=== PATIENT | female | born 1950 | race Caucasian/White ===

== ENCOUNTER 2016-08-23 10:02 | Day surgery (SDC) | payer MEDICARE ==
[2016-07-26 10:24] VITALS: BMI 25.0
--- NOTE | 2016-08-22 13:30 | HP ---
DATE OF ADMISSION: Surgery is 08/23/2016. Leisa Cordoba is a 66-year-old patient who was seen with progressive left knee pain. After having treatment options discussed, patient elected to proceed with left knee arthroscopy. Consent was obtained. Past medical history is noncontributory. PAST SURGICAL HISTORY: Tubal ligation. DAILY MEDICATIONS: 1. Advil. 2. [id number] vitamins. ALLERGIES: CODEINE. SOCIAL HISTORY: Patient denies tobacco use. PHYSICAL EVALUATION OF THE LEFT KNEE: Range of motion is 0 to 130 degrees. There is a mild effusion present. Tenderness along the medial and lateral joint lines. Positive medial Daphney's. Ligaments stable. Hip rotation is without pain. Distal neurovascular exam is intact. Radiographs of the left knee revealed mild to moderate medial compartment osteoarthritis. An MRI of the left knee revealed medial meniscal tear, osteoarthritis and joint effusion. IMPRESSION: Internal derangement of the left knee with medial meniscal tear. PLAN: Left knee arthroscopy with partial meniscectomy and debridement.
[~2016-08-23 10:02] MED LIST: DEXAMETHASONE SOD PHOSPHATE 10 MG/ML 1 ML VIAL IV ONE; LACTATED RINGERS 1,000 ML IV SCH; LIDOCAINE 1% 20 ML VIAL (10MG/ML) FOR IV START INTRADERMA PRN; ONDANSETRON 4 MG/2 ML VIAL IVP ONE; SCOPOLAMINE 1.5MG/72HR PATCH TRANSDERM ONE; ceFAZolin 2 GM in SODIUM CHLORIDE 0.9% 100 ML IVPB ONE; fentaNYL (PF) 50 MCG/ML 2 ML AMP IV PRN
[2016-08-23] MEDS ORDERED: LIDOCAINE 1% 20 ML VIAL (10MG/ML) FOR IV START INTRADERMA ONE (10:25)
[2016-08-23] MEDS ORDERED: SUCCINYLCHOLINE CHLORIDE 100 MG/5 ML SYR IV ONE (11:33)
[2016-08-23] MEDS ORDERED: LIDOCAINE 1% INJ 10MG/ML (20 ML MDV) ONE (11:33)
[2016-08-23] MEDS ORDERED: PROPOFOL 10 MG/ML 20 ML VIAL IV ONE (11:33)
[2016-08-23] MEDS ORDERED: BUPIVACAIN-EPI 0.25%-1:200,000 30 ML VIAL INTRAARTIC ONE (11:33)
[2016-08-23] MEDS ORDERED: ONDANSETRON 4 MG/2 ML VIAL ONE (11:33)
[2016-08-23] MEDS ORDERED: MIDAZOLAM 2 MG/2 ML VIAL ONE (11:33)
[2016-08-23] MEDS ORDERED: fentaNYL (PF) 50 MCG/ML 2 ML AMP ONE (11:33)
--- NOTE | 2016-08-23 12:37 | P.OP ---
Date of Procedure: 08/23/16 Preoperative Diagnosis: Internal derangement left knee Postoperative Diagnosis: 1. Tear medial and lateral meniscus left knee 2. Grade 2/3 chondromalacia medial femoral condyle left knee 3. Grade 2/3 chondromalacia patella left knee 4. Reactive synovitis medial and suprapatellar compartments left knee Procedure(s) Performed: 1. Arthroscopic partial medial and lateral meniscectomy left knee 2. Arthroscopic chondroplasty medial femoral condyle left knee 3. Arthroscopic chondroplasty patella left knee 4. Arthroscopic partial synovectomy medial and suprapatellar compartments left knee Anesthesia: GETA Surgeon: Toro Mccloud Estimated Blood Loss (ml): 10 Pathology: none sent Condition: stable Disposition: PACU Indications for Procedure: 66-year-old patient seen with progressive left knee pain. After having treatment options discussed, she elected to proceed with left knee arthroscopy. Operative Findings: See description of procedure Description of Procedure: Patient was taken to the operative suite. Patient underwent a general anesthetic by the department of anesthesia. Patient was given preoperative antibiotics. The left lower extremity was placed in a well-padded arthroscopic leg carr. The left leg was prepped and draped in the normal sterile orthopedic fashion. A lateral parapatellar and suprapatellar incision was made. Trochars were inserted. Arthroscopy was initiated. Suprapatellar pouch revealed diffuse thick reactive synovitis. The patellofemoral joint appeared to articulate congruently. There was grade 2-3 chondromalacia of the patella with some osteochondral tears present. The scope was guided into the medial gutter. No loose bodies or plica were identified. The scope was then guided into the medial compartment. A medial parapatellar incision was made. Trocar inserted followed by probe. There was a complex tear involving the posterior horn medial meniscus which extended into the midbody. There were grade 2-3 chondromalacia changes of the medial femoral condyle with some osteochondral tears. There were grade 2-3 chondromalacia changes of the tibial plateau. There was some reactive synovitis anteriorly. A partial medial meniscectomy was performed on a stable tissue. I performed a chondroplasty of the medial femoral condyle and partial synovectomy. The residual meniscus was probed and found to be stable. The residual osteochondral surface of the femur was stable as well. Scope and probe were then guided into the intercondylar notch. Cruciates were identified, probed and found to be stable. The scope and probe were then guided into lateral compartment. There was a radial tear involving the posterior horn lateral meniscus. The lateral femoral condyle and tibial plateau were unremarkable. There were no loose bodies and no reactive synovitis. A partial lateral meniscectomy was performed on a stable tissue. The residual meniscus was probed and found to be stable. The scope was in guided back into the suprapatellar compartment. I introduced a motorized shaver into the super compartment. I performed a chondroplasty of the patella getting down to stable osteochondral tissue. I debrided piecemeal fragments of meniscus I encountered. I performed a partial synovectomy. The shaver was removed. The patella was probed and the residual osteochondral surface was stable with grade 2-3 chondromalacia changes. The probe was removed. I took one more look around the entire knee. No residual debris. Instruments were now removed from the joint. The joint was infiltrated with .25% Marcaine. Steri-Strips were applied to the portal sites. Sterile dressings were applied. The patient was placed into a MOLLY hose. No tourniquet was utilized. The patient was awakened, transferred to a bed and taken to recovery stable satisfactory condition.
[2016-08-23 12:42] VITALS: TEMP 98.3
[2016-08-23 12:55] VITALS: RESP 18
[2016-08-23] MEDS ORDERED: KETOROLAC 30 MG/ML 1 ML VIAL IVP ONE (13:00)
[2016-08-23] MEDS ORDERED: LACTATED RINGERS 1,000 ML IV ONE (13:36)
[2016-08-23] MEDS ORDERED: IBUPROFEN 800 MG TAB PO STA (14:24)
[2016-08-23 14:25] VITALS: PULSE 68
[2016-08-23] MEDS ORDERED: IBUPROFEN 200 MG TAB PO ONE (14:28)
[2016-08-23 14:49] VITALS: BP 143/73
== END 2016-08-23 15:11 | disposition home or self-care (01) ==
LOC: OR 10:02
PROVIDERS: ATTEND Orthopaedic Surgery
DX: S83.242A Other tear of medial meniscus, current injury, left knee, initial encounter (principal); S83.282A Other tear of lateral meniscus, current injury, left knee, initial encounter; X58.XXXA Exposure to other specified factors, initial encounter; M22.42 Chondromalacia patellae, left knee; M65.862 Other synovitis and tenosynovitis, left lower leg; Z79.1 Long term (current) use of non-steroidal anti-inflammatories (NSAID); Z88.5 Allergy status to narcotic agent
CPT/HCPCS: 29880; J2250; J1100; J0690; J2405; J2001; J3010; J1885; J0330; J2704

== ENCOUNTER → 2016-08-29 | Outpatient (CLI) | payer MEDICARE ==
--- NOTE | 2016-08-31 07:57 | MM ---
Reason for exam: screening (asymptomatic). Last mammogram was performed 2 years and 1 month ago. History: Patient is postmenopausal. Family history of breast cancer in sister at age 59. Taking estrogen for 5 years 1 month. Physical Findings: A clinical breast exam by your physician is recommended on an annual basis and results should be correlated with mammographic findings. MG 3D Screening Mammo W/Cad Bilateral CC and MLO view(s) were taken. Prior study comparison: July 31, 2014, bilateral MG screening mammo w CAD. June 07, 2012, bilateral digital screening mammo w/CAD. February 08, 2011, bilateral digital screening mammo w/CAD. The breast tissue is heterogeneously dense. This may lower the sensitivity of mammography. No significant changes when compared with prior studies. ASSESSMENT: Negative, BI-RAD 1 RECOMMENDATION: Routine screening mammogram of both breasts in 1 year.
== END | disposition home or self-care (01) ==
LOC: RADMAMWWP 11:16
PROVIDERS: ATTEND Family Medicine
DX: Z12.31 Encounter for screening mammogram for malignant neoplasm of breast (principal)
CPT/HCPCS: 77063; G0202

== ENCOUNTER 2016-12-13 07:14 | Day surgery (SDC) | payer MEDICARE ==
[2016-12-08 09:41] VITALS: BMI 24.3
[~2016-12-13 07:14] MED LIST changes: -DEXAMETHASONE SOD PHOSPHATE 10 MG/ML 1 ML VIAL IV ONE; -ONDANSETRON 4 MG/2 ML VIAL IVP ONE; -SCOPOLAMINE 1.5MG/72HR PATCH TRANSDERM ONE; -ceFAZolin 2 GM in SODIUM CHLORIDE 0.9% 100 ML IVPB ONE; -fentaNYL (PF) 50 MCG/ML 2 ML AMP IV PRN
[2016-12-13 07:43] VITALS: TEMP 97
[2016-12-13] MEDS ORDERED: PROPOFOL 10 MG/ML 20 ML VIAL IV ONE (07:53)
[2016-12-13] MEDS ORDERED: LIDOCAINE 1% INJ 10MG/ML (20 ML MDV) ONE (07:53)
--- NOTE | 2016-12-13 07:57 | P.GSHP ---
History of Present Illness H&P Date: 12/13/16 Chief Complaint: Colon cancer screening Patient here today for colonoscopy. Last colonoscopy was over 10 years ago and was normal. No family history of colon cancer. No symptoms at this time. Past Medical History Past Medical History: No Reported History Additional Past Medical History / Comment(s): torn meniscus lt knee,states "hx approx 5 yrs ago b/p dropped low a couple of times suddenly and was seen by associate trainer.",palpitations,varicose vein History of Any Multi-Drug Resistant Organisms: None Reported Past Surgical History: Orthopedic Surgery, Tubal Ligation Additional Past Surgical History / Comment(s): LT KNEE SCOPE. COLONOSOCPY Past Anesthesia/Blood Transfusion Reactions: Postoperative Nausea & Vomiting ( PONV) Additional Past Anesthesia/Blood Transfusion Reaction / Comment(s): mother-ponv, no hx blood transfusion Past Psychological History: No Psychological Hx Reported Smoking Status: Never smoker Past Alcohol Use History: None Reported Past Drug Use History: None Reported - Past Family History Mother Family Medical History: No Reported History Father Family Medical History: Cancer, Chest Pain / Angina Additional Family Medical History / Comment(s): prostate Sister(s) Family Medical History: Cancer Additional Family Medical History / Comment(s): breast Medications and Allergies Home Medications Medication Instructions Recorded Confirmed Type Acetaminophen [Tylenol Arthritis] 650 mg PO Q6H PRN 07/26/16 12/13/16 History Ascorbic Acid [Vitamin C] 500 mg PO DAILY 07/26/16 12/13/16 History B Tropilis Supplement 1 tab PO DAILY 07/26/16 12/13/16 History Calcium Carbonate/Vitamin D3 1 each PO DAILY 07/26/16 12/13/16 History [Calcium 600-Vit D3 400 Caplet] Ibuprofen [Advil] 200 - 400 mg PO Q6H PRN 07/26/16 12/13/16 History Magnesium 600 mg PO BID 07/26/16 12/13/16 History Potassium 99 mg PO DAILY 07/26/16 12/13/16 History [place] Jelly 250 mg PO DAILY 07/26/16 12/13/16 History Ubidecarenone [Co Q-10] 100 mg PO DAILY 07/26/16 12/13/16 History Allergies Allergy/AdvReac Type Severity Reaction Status Date / Time codeine AdvReac Hallucinati Verified 12/08/16 09:37 ons Surgical - Exam Vital Signs Temp Pulse Resp BP Pulse Ox 97.0 F L 68 14 101/65 97 12/13/16 07:42 12/13/16 07:42 12/13/16 07:42 12/13/16 07:42 12/13/16 07:42 Physical exam: General: Well-developed, well-nourished HEENT: Normocephalic, sclerae nonicteric Abdomen: Nontender, nondistended Extremities: No edema Neuro: Alert and oriented Assessment and Plan (1) Colon cancer screening Narrative/Plan: Will proceed with colonoscopy at this time. Status: Acute
--- NOTE | 2016-12-13 08:13 | P.PCN ---
Date of Procedure: 12/13/16 Procedure(s) Performed: PREOPERATIVE DIAGNOSIS: Colon cancer screening POSTOPERATIVE DIAGNOSIS: Normal exam PROCEDURE: Colonoscopy ANESTHESIA: MAC SURGEON: Alexandru Yee M.D. SPECIMENS: None ENDOSCOPIC PROCEDURE: The patient was placed on the endoscopy table in the left decubitus position. The Olympus colonoscope was inserted into the anus and passed under direct visualization to the base of the cecum. The appendiceal orifice was visualized. From that point the scope was slowly withdrawn inspecting all surfaces carefully. There were no neoplastic inflammatory or polypoid lesions throughout the cecum, ascending, transverse, descending, sigmoid and rectum. There was no diverticulosis noted. Digital rectal examination was normal. The patient was taken to the recovery room in stable condition per anesthesia guidelines. RECOMMENDATIONS: Increase fiber. Follow-up colonoscopy 10 years.
[2016-12-13 08:26] VITALS: RESP 16
[2016-12-13 08:48] VITALS: BP 111/68; PULSE 66
== END 2016-12-13 09:10 | disposition home or self-care (01) ==
LOC: ORWHC2ENDO 07:14
PROVIDERS: ATTEND Surgery
DX: Z12.11 Encounter for screening for malignant neoplasm of colon (principal); Z88.5 Allergy status to narcotic agent
CPT/HCPCS: J2001; J2704; G0121; 45378

== ENCOUNTER → 2017-09-17 | Outpatient (CLI) | payer MEDICARE ==
--- NOTE | 2017-09-19 07:56 | MM ---
Reason for exam: screening (asymptomatic). Last mammogram was performed 1 year and 1 month ago. History: Patient is postmenopausal. Family history of breast cancer in sister at age 59. Taking estrogen for 5 years 1 month. Physical Findings: A clinical breast exam by your physician is recommended on an annual basis and results should be correlated with mammographic findings. MG 3D Screening Mammo W/Cad Bilateral CC and MLO view(s) were taken. Prior study comparison: August 29, 2016, bilateral MG 3d screening mammo w/cad. July 31, 2014, bilateral MG screening mammo w CAD. The breast tissue is heterogeneously dense. This may lower the sensitivity of mammography. No suspicious abnormality. No significant changes when compared with prior studies. ASSESSMENT: Negative, BI-RAD 1 RECOMMENDATION: Routine screening mammogram of both breasts in 1 year.
== END | disposition home or self-care (01) ==
LOC: RADMAMWWP 14:45
PROVIDERS: ATTEND Family Medicine
DX: Z12.31 Encounter for screening mammogram for malignant neoplasm of breast (principal)
CPT/HCPCS: 77063; 77067

== ENCOUNTER → 2017-09-18 | Outpatient (CLI) | payer MEDICARE ==
--- NOTE | 2017-09-18 12:23 | BD ---
EXAMINATION TYPE: MG DEXA axial skeleton. DATE OF EXAM: 09/18/2017 CLINICAL HISTORY: Height: 67 inches Weight: 163 FRAX RISK QUESTIONS: Alcohol (3 or more units per day): no Family History (Parent hip fracture): yes, father Glucocorticoids (More than 3mos): no (Ex: prednisone, prednisolone, methylprednisolone, dexamethasone, and hydrocortisone). History of Fracture in Adulthood: foot Secondary Osteoporosis: 1. Type 1 Diabetes: no 2. Hyperthyroidism: no 3. Menopause before 45: no 4. Malnutrition: no 5. Chronic liver disease: no Rheumatoid Arthritis: no Current Tobacco Use: no RISK FACTORS HISTORY OF: Family History of Osteoporosis: possibly mother Active: yes Diet low in dairy products/other sources of calcium: at least one serving a day Postmenopausal woman: yes Take estrogen and/or progesterone medications: not now How long: about 5 years Lost more than 2 inches in height since high school: no Frequent falls: no Poor Health: no Hyperparathyroidism: no Adrenal Insufficiency: no MEDICATIONS: Prednisone or other steroids: no Thyroid Medications: no Osteoporosis Medications: no Additional Medications: calcium with vitaminD EXAM MEASUREMENTS: Bone mineral densitometry was performed using the [employer] Computer System. Bone mineral density as measured about the Lumbar spine is: ----- L1-L4(G/cm2): 1.104 T Score Values are as follows: ----- L2: -1.2 ----- L3: -0.9 ----- L4: 0.7 ----- L1-L4: -0.6 Bone mineral density has: Decreased -4.5% since study of: 05/03/2007 Bone mineral density about the R hip (g/cm2): 0.732 Bone mineral density about the L hip (g/cm2): 0.808 T Score values are as follows: -----R Neck: -2.2 -----L Neck: -1.7 -----R Total: -1.7 -----L Total: -1.4 Bone mineral density has: Decreased -5.1% since study of: 05/03/2007 IMPRESSION: Osteopenia about the bilateral femora. NOTE: T-SCORE=SD OF THE YOUNG ADULT MEAN.
== END | disposition home or self-care (01) ==
LOC: RADBDWWP 10:27
PROVIDERS: ATTEND Family Medicine
DX: M85.851 Other specified disorders of bone density and structure, right thigh (principal); M85.852 Other specified disorders of bone density and structure, left thigh
CPT/HCPCS: 77080

== ENCOUNTER 2019-07-10 10:51 | Emergency (ER) | payer MEDICARE ==
[2019-07-10 10:59] VITALS: BP 121/65; PULSE 80; RESP 18; TEMP 98
--- NOTE | 2019-07-10 11:25 | XR ---
EXAMINATION TYPE: XR chest 2V DATE OF EXAM: 07/10/2019 COMPARISON: Chest x-ray August 04, 2010. HISTORY: Cough and fever. TECHNIQUE: Frontal and lateral views of the chest are obtained. FINDINGS: There is no focal air space opacity, pleural effusion, or pneumothorax seen. The cardiac silhouette size is stable and upper limits of normal. Osseous structures are demineralized. Underlyin g dextroconvex scoliosis centered mid to lower thoracic spine is redemonstrated. IMPRESSION: No suspicious new acute pulmonary process.
--- NOTE | 2019-07-10 11:42 | ED ---
URI HPI - General Chief Complaint: Upper Respiratory Infection Stated Complaint: Fever/congestion/cough Time Seen by Provider: 07/10/19 11:01 Source: patient Mode of arrival: ambulatory Limitations: no limitations - History of Present Illness Initial Comments: Patient is a 69-year-old female presenting to the emergency Department with complaints of a cough and chest congestion for the past week. Patient also admits to intermittent fevers. Patient denies history of asthma or COPD. Patient states today she has been feeling an increase in fatigue as well as an increase in chest congestion. Patient denies chest pains, shortness of breath, nausea, vomiting, abdominal pain. Patient has no other complaints this time. Upon arrival to the ER, vital signs are stable, afebrile. - Related Data Home Medications Medication Instructions Recorded Confirmed Acetaminophen [Tylenol Arthritis] 650 mg PO Q6H PRN 07/26/16 12/13/16 Ascorbic Acid [Vitamin C] 500 mg PO DAILY 07/26/16 12/13/16 B Tropilis Supplement 1 tab PO DAILY 07/26/16 12/13/16 Calcium Carbonate/Vitamin D3 1 each PO DAILY 07/26/16 12/13/16 [Calcium 600-Vit D3 400 Caplet] Ibuprofen [Advil] 200 - 400 mg PO Q6H PRN 07/26/16 12/13/16 Magnesium 600 mg PO BID 07/26/16 12/13/16 Potassium 99 mg PO DAILY 07/26/16 12/13/16 [place] Jelly 250 mg PO DAILY 07/26/16 12/13/16 Ubidecarenone [Co Q-10] 100 mg PO DAILY 07/26/16 12/13/16 Previous Rx's Medication Instructions Recorded Azithromycin [Zithromax Z-pack] 0 mg PO DIRECTED #1 pack 07/10/19 predniSONE 20 mg PO BID 3 Days #6 tab 07/10/19 Allergies Allergy/AdvReac Type Severity Reaction Status Date / Time codeine AdvReac Hallucinati Verified 07/10/19 10:55 ons Review of Systems ROS Statement: Those systems with pertinent positive or pertinent negative responses have been documented in the HPI. ROS Other: All systems not noted in ROS Statement are negative. 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 COLONOSOCPY Past Anesthesia/Blood Transfusion Reactions: Postoperative Nausea & Vomiting (PONV) Additional Past Anesthesia/Blood Transfusion Reaction / Comment(s): mother- ponv,no hx blood transfusion Past Psychological History: No Psychological Hx Reported Smoking Status: Never smoker Past Alcohol Use History: None Reported, Occasional Past Drug Use History: None Reported - Past Family History Mother Family Medical History: No Reported History Father Family Medical History: Cancer, Chest Pain / Angina Additional Family Medical History / Comment(s): prostate Sister(s) Family Medical History: Cancer Additional Family Medical History / Comment(s): breast General Exam - General Exam Comments Initial Comments: GENERAL: Well-appearing, well-nourished and in no acute distress. HEAD: Atraumatic, normocephalic. EYES: Pupils equal round and reactive to light, extraocular movements intact, sclera anicteric, conjunctiva are normal. ENT: TMs normal, nares patent, oropharynx clear without exudates. Moist mucous membranes. NECK: Normal range of motion, supple without lymphadenopathy or JVD. LUNGS: Breath sounds clear to auscultation bilaterally and equal. No wheezes rales or rhonchi. HEART: Regular rate and rhythm without murmurs, rubs or gallops. ABDOMEN: Soft, nontender, normoactive bowel sounds. No guarding, no rebound. No masses appreciated. EXTREMITIES: Normal range of motion, no pitting or edema. No clubbing or cyanosis. NEUROLOGICAL: Cranial nerves II through XII grossly intact. Normal speech, normal gait. PSYCH: Normal mood, normal affect. SKIN: Warm, Dry, normal turgor, no rashes or lesions noted. Limitations: no limitations Course Vital Signs 07/10/19 10:56 Temperature 98.0 F Pulse Rate 80 Respiratory 18 Rate Blood Pressure 121/65 O2 Sat by Pulse 96 Oximetry Medical Decision Making - Medical Decision Making Patient is a 69-year-old female presenting with cough and chest congestion 1 week. Vital signs are stable upon arrival. Exam is unremarkable today. Chest x-ray shows no acute processes. Influenza is negative. Discussed with patient is most likely an upper respiratory infection but given her intermittent fevers we will treat with azithromycin and short course of steroids. Patient is agreeable with this plan care. Patient will follow up with PCP if symptoms persist. Return parameters were discussed with the patient she verbalized understanding. Case discussed with Dr. Garcia. - Lab Data Lab Results 07/10/19 Range/Units 11:16 Influenza Type A RNA Not Detected (Not Detectd) Influenza Type B (PCR) Not Detected (Not Detectd) Disposition Clinical Impression: Upper respiratory tract infection Disposition: HOME SELF-CARE Condition: Stable Instructions (If sedation given, give patient instructions): Upper Respiratory Infection (ED) Additional Instructions: Please return to the Emergency Department if symptoms worsen or any other concerns. Take medications as prescribed. Follow-up with PCP if symptoms persist. Prescriptions: predniSONE 20 mg PO BID 3 Days #6 tab Azithromycin [Zithromax Z-pack] 0 mg PO DIRECTED #1 pack Is patient prescribed a controlled substance at d/c from ED?: No Referrals: Carlos Torrez DO [Primary Care Provider] - 1-2 days
== END 2019-07-10 12:13 | disposition home or self-care (01) ==
LOC: EC 10:51
DX: J06.9 Acute upper respiratory infection, unspecified (principal); Z88.5 Allergy status to narcotic agent
CPT/HCPCS: 71046; 87502; 99283

== ENCOUNTER → 2020-08-03 | Outpatient (CLI) | payer MEDICARE ==
--- NOTE | 2020-08-04 11:55 | MM ---
Reason for exam: screening (asymptomatic). Last mammogram was performed 2 years and 11 months ago. History: Patient is postmenopausal. Family history of breast cancer in sister at age 59. Taking estrogen for 5 years 1 month. Physical Findings: A clinical breast exam by your physician is recommended on an annual basis and results should be correlated with mammographic findings. MG 3D Screening Mammo W/Cad Bilateral CC and MLO view(s) were taken. Prior study comparison: September 17, 2017, bilateral MG 3d screening mammo w/cad. August 29, 2016, bilateral MG 3d screening mammo w/cad. The breast tissue is extremely dense which could obscure a lesion on mammography. There is no discrete abnormality. No significant changes when compared with prior studies. ASSESSMENT: Negative, BI-RAD 1 RECOMMENDATION: Routine screening mammogram of both breasts in 1 year.
== END | disposition home or self-care (01) ==
LOC: RADMAMWWP 14:25
PROVIDERS: ATTEND Family Medicine
DX: Z12.31 Encounter for screening mammogram for malignant neoplasm of breast (principal)
CPT/HCPCS: 77063; 77067

== ENCOUNTER → 2020-08-03 | Outpatient (CLI) | payer MEDICARE ==
--- NOTE | 2020-08-03 18:16 | P.HPOB ---
History of Present Illness H&P Date: 08/03/20 Chief Complaint: The patient is here for her routine gynecologic exam and ma mmogram. This is a 70-year-old with an LMP of 2002. The patient is here to establish with this office. She previously saw Dr. Nuno for her gynecologic care. Her last pelvic exam was about 5 or 6 years ago. She is without gynecologic complaints and denies any postmenopausal bleeding. Review of Systems Weight has been stable.. She denies respiratory, cardiac and G.I. problems. She denies maltreatment or problems with falling. : she denies any significant problems with urinary leakage. Past Medical History Past Medical History: No Reported History Additional Past Medical History / Comment(s): torn meniscus lt knee,states, palpitations,varicose vein. Osteopenia. 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 History of Any Multi-Drug Resistant Organisms: None Reported Past Surgical History: Tubal Ligation Additional Past Surgical History / Comment(s): LT KNEE SCOPE. COLONOSOCPY 2017(next after 10yr) Past Anesthesia/Blood Transfusion Reactions: Postoperative Nausea & Vomiting (PO NV) Additional Past Anesthesia/Blood Transfusion Reaction / Comment(s): mother- ponv,no hx blood transfusion Past Psychological History: No Psychological Hx Reported Smoking Status: Never smoker Past Alcohol Use History: Occasional (2 per month) Past Drug Use History: None Reported Additional History: She has been since 2007. She currently lives with her ex- and is sexually active with him. 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 She also works part-time at [employer]. - Past Family History Mother Family Medical History: CVA/TIA Father Family Medical History: Cancer, Chest Pain / Angina, CVA/TIA Additional Family Medical History / Comment(s): prostate CA. Sister(s) Family Medical History: Cancer Additional Family Medical History / Comment(s): breast CA. Medications and Allergies Home Medications Medication Instructions Recorded Confirmed Type Acetaminophen [Tylenol Arthritis] 650 mg PO Q6H PRN 07/26/16 08/03/20 History Ascorbic Acid [Vitamin C] 500 mg PO DAILY 07/26/16 08/03/20 History Calcium Carbonate/Vitamin D3 1 each PO DAILY 07/26/16 08/03/20 History [Calcium 600-Vit D3 400 Caplet] Magnesium 600 mg PO BID 07/26/16 08/03/20 History Potassium 99 mg PO DAILY 07/26/16 08/03/20 History Allergies Allergy/AdvReac Type Severity Reaction Status Date / Time codeine AdvReac Hallucinati Verified 08/03/20 15:06 ons Exam Vital Signs Temp Pulse Resp BP Pulse Ox 08/03/20 15:06 98.0 F 97 18 143/81 98 Intake and Output 08/03/20 08/03/20 08/03/20 06:59 14:59 22:59 Other: Weight 73.482 kg Height 5 feet 6-1/2 inches, weight 162 pounds, BMI 25.8. This is a well-developed well-nourished white female who is alert and oriented times 3 in no acute distress. HEENT: Within normal limits. NECK: Supple without mass or thyromegaly. CHEST AND LUNGS: Clear to auscultation. HEART: Regular rate and rhythm. BREASTS: Are without mass or discharge. AXILLARY EXAM: Negative for adenopathy. BACK: Negative for CVA tenderness. ABDOMEN: Soft, nontender, without palpable masses. PELVIC EXAM: Normal external genitalia with mild atrophy. Cervix and vagina appear normal with mild atrophy. There is no unusual discharge. There is a grade 2 uterine prolapse at rest. With Valsalva it approaches the introitus. There is no significant cystocele or rectocele. The uterus is midposition, nongravid size and nontender. There are no palpable adnexal masses or tenderness. RECTAL EXAM: Rectovaginal exam is negative for mass or tenderness and is negative for occult blood. EXTREMITIES: Nontender. IMPRESSION: 1. 70-year-old menopausal female with grade 2-3 uterine prolapse which is asymptomatic. The patient states she was told by Dr. Urias that she had some degree of uterine prolapse in the past. 2. History of osteopenia. 3. Mildly elevated blood pressure. PLAN: 1. Pap smear cotest was performed. I will review Dr. Nuno's chart and we'll determine if she is a candidate to have her Pap smears discontinued. 2. Self breast awareness was discussed with the patient. 3. Screening mammogram was done today. 4. Osteoporosis prevention was discussed. I have stressed the importance of adequate calcium, vitamin D and regular exercise. Recommended amounts of calcium and vitamin D were also discussed. Repeating bone density testing was r ecommended and the order slip was given to the patient for this. She may want to do this next year. 5. Her uterine prolapse was discussed. She would like to manage this conservatively as she has done in the past. To avoid heavy repetitive lifting and bearing down when possible. Negative Valsalva exercises were discussed if she is feeling vaginal pressure. She was instructed to return for follow-up if she is having symptoms related to this. The [employer]CO[employer] FAQ handout on pelvic prolapse was given to the patient. 6. She was advised to return in one year for her annual well woman exam.
--- NOTE | 2020-08-11 11:14 | P.PN ---
Progress Note - Text Progress Note Date: 08/11/20 OUTPATIENT FOLLOW-UP NOTE TEST(S)/RESULTS: test results from 08/03/2020 include negative Pap smear cotest and benign mammogram. METHOD OF NOTIFICATION: the patient was notified by phone. PATIENT COMMENTS: the patient is happy to hear these results. DIAGNOSIS: negative Pap smear cotest and benign mammogram. DISCUSSION: I have reviewed Dr. Nuno's chart. She has had adequate screening and she has no history of cervical dysplasia or cervical cancer. Pap smears will be discontinued. I have stressed the importance of continuing pelvic exams at least every 1-2 years. PLAN: The patient was advised to return in 1-2 years for her well woman examination.
== END | disposition home or self-care (01) ==
DX: Z53.9 Procedure and treatment not carried out, unspecified reason (principal)

== ENCOUNTER → 2021-08-04 | Outpatient (CLI) | payer MEDICARE ==
--- NOTE | 2021-08-08 13:58 | MM ---
Reason for exam: screening (asymptomatic). Last mammogram was performed 1 year ago. History: Patient is postmenopausal. Family history of breast cancer in sister at age 59. Took estrogen for 5 years 1 month. Physical Findings: A clinical breast exam by your physician is recommended on an annual basis and results should be correlated with mammographic findings. MG 3D Screening Mammo W/Cad Bilateral CC and MLO view(s) were taken. Prior study comparison: August 03, 2020, bilateral MG 3d screening mammo w/cad. September 17, 2017, bilateral MG 3d screening mammo w/cad. The breast tissue is heterogeneously dense. This may lower the sensitivity of mammography. There is no discrete abnormality. ASSESSMENT: Negative, BI-RAD 1 RECOMMENDATION: Routine screening mammogram of both breasts in 1 year.
== END | disposition home or self-care (01) ==
LOC: RADMAMWWP 14:44
PROVIDERS: ATTEND Family Medicine
DX: Z12.31 Encounter for screening mammogram for malignant neoplasm of breast (principal); Z80.3 Family history of malignant neoplasm of breast; Z78.0 Asymptomatic menopausal state
CPT/HCPCS: 77063; 77067

== ENCOUNTER 2021-10-20 09:01 | Day surgery (SDC) | payer MEDICARE ==
[2021-10-19 08:17] VITALS: BMI 24.2
[2021-10-20] MEDS: LACTATED RINGERS 1,000 ML IV SCH ×2 (08:20→09:40)
[2021-10-20 09:42] VITALS: TEMP 98.1
[2021-10-20] MEDS ORDERED: ONDANSETRON 4 MG/2 ML VIAL IVP ONE (09:48)
[2021-10-20] MEDS ORDERED: ONDANSETRON 4 MG/2 ML VIAL ONE (09:51)
[2021-10-20] MEDS ORDERED: PROPOFOL 10 MG/ML 20 ML VIAL IV ONE (10:03)
--- NOTE | 2021-10-20 10:06 | P.GSHP ---
History of Present Illness H&P Date: 10/20/21 Chief Complaint: Diarrhea, constipation Is a 71-year-old female who's had issues with intermittent diarrhea and constipation. Patient also had some mild abdominal pain. She presents today for colonoscopy. Past Medical History Past Medical History: GERD/Reflux Additional Past Medical History / Comment(s): Hx mild palpitations. Osteopenia. c/o hx diarrhea, constipation, occ mild abd pain. History of Any Multi-Drug Resistant Organisms: None Reported Past Surgical History: Orthopedic Surgery, Tubal Ligation Additional Past Surgical History / Comment(s): LT KNEE SCOPE. COLONOSOCPY 2017. RT CATARACT REMOVED WITH LENS IMPLANTS Past Anesthesia/Blood Transfusion Reactions: Family History of Problems w/ A nesthesia, Postoperative Nausea & Vomiting (PONV) Additional Past Anesthesia/Blood Transfusion Reaction / Comment(s): Mother-PONV; no hx blood transfusion Past Psychological History: No Psychological Hx Reported Smoking Status: Never smoker Past Alcohol Use History: Occasional Past Drug Use History: None Reported - Past Family History Mother Family Medical History: CVA/TIA Father Family Medical History: Cancer, Chest Pain / Angina, CVA/TIA Additional Family Medical History / Comment(s): prostate CA. Sister(s) Family Medical History: Cancer Additional Family Medical History / Comment(s): breast CA. Medications and Allergies Home Medications Medication Instructions Recorded Confirmed Type Acetaminophen [Tylenol Arthritis] 650 mg PO Q6H PRN 07/26/16 10/19/21 History Ascorbic Acid [Vitamin C] 1,000 mg PO DAILY 07/26/16 10/19/21 History Acetaminophen [Tylenol Extra 500 - 1,000 mg PO DIRECTED PRN 09/08/21 10/19/21 History Strength] Biotin [Biotin Disolve] 5,000 mcg PO DAILY 09/08/21 10/19/21 History Cholecalciferol [Vitamin D3 (125 125 mcg PO DAILY 09/08/21 10/19/21 History Mcg = 5000 Iu)] Allergies Allergy/AdvReac Type Severity Reaction Status Date / Time codeine AdvReac Hallucinati Verified 10/19/21 08:10 ons latex AdvReac Itching Verified 10/19/21 08:10 Surgical - Exam Vital Signs Temp Pulse Resp BP Pulse Ox 98.1 F 83 20 139/77 97 10/20/21 09:40 10/20/21 09:40 10/20/21 09:40 10/20/21 09:40 10/20/21 09:40 - General well developed, well nourished, no distress - Eyes PERRL - ENT normal pinna - Neck no masses - Respiratory normal expansion - Cardiovascular Rhythm: regular - Abdomen Abdomen: soft, non tender Assessment and Plan Assessment: History of diarrhea and passed patient. We'll perform colonoscopy
--- NOTE | 2021-10-20 10:16 | P.OP ---
Date of Procedure: 10/20/21 Preoperative Diagnosis: Diarrhea Postoperative Diagnosis: Normal colon pathology pending Procedure(s) Performed: Colonoscopy Anesthesia: MAC Surgeon: Kalyan Montano Pathology: other (Rectum) Condition: stable Disposition: PACU Description of Procedure: The patient's placed on the endoscopy table in the lateral position. She received IV sedation. Digital rectal exam was performed which revealed external hemorrhoids. The flexible colonoscope was then placed patient anus passed throughout the entire colon. The ileocecal valve was visualized. The cecum, ascending and transverse colon appeared normal. The descending and sigmoid colon appeared normal. The rectum appeared normal. However due the patient's complaints of diarrhea Sanket rectal biopsies performed with a cold forcep. Scope was withdrawn for patient.
[2021-10-20 10:22] VITALS: RESP 16
[2021-10-20 10:43] VITALS: BP 107/71; PULSE 67
== END 2021-10-20 10:57 | disposition home health service (06) ==
LOC: ORWHC2ENDO 09:01
PROVIDERS: ATTEND Surgery
DX: R19.7 Diarrhea, unspecified (principal); K64.4 Residual hemorrhoidal skin tags; K59.00 Constipation, unspecified; K21.9 Gastro-esophageal reflux disease without esophagitis; R00.2 Palpitations; M85.80 Other specified disorders of bone density and structure, unspecified site; Z88.5 Allergy status to narcotic agent; Z91.040 Latex allergy status; Z98.890 Other specified postprocedural states; Z98.51 Tubal ligation status; Z98.41 Cataract extraction status, right eye; Z96.1 Presence of intraocular lens; Z82.3 Family history of stroke; Z80.42 Family history of malignant neoplasm of prostate
CPT/HCPCS: 88305; 45380; J2405; J2704

== ENCOUNTER 2021-11-25 11:15 | Observation (INO) | payer MEDICARE ==
[2021-11-25] MEDS ORDERED: ASPIRIN 81 MG PO STA (11:43)
--- NOTE | 2021-11-25 11:51 | ED ---
General Adult HPI - General Chief complaint: Chest Pain Stated complaint: chest pressure Time Seen by Provider: 11/25/21 11:27 Source: patient, RN notes reviewed Mode of arrival: ambulatory Limitations: no limitations - History of Present Illness Initial comments: Patient is a pleasant 71-year-old female presenting to the emergency Department with chest discomfort. Onset of symptoms was about a half an hour prior to arrival. Discomfort was right sternal and involve the next/jaw as well. Symptoms are near resolved at this time rated 1/10. Discomfort felt like pressure. No associated dyspnea, nausea, or diaphoresis. No history of similar symptoms previously. No leg pain or leg swelling. - Related Data Home Medications Medication Instructions Recorded Confirmed Ascorbic Acid [Vitamin C] 1,000 mg PO DAILY 07/26/16 11/25/21 Biotin [Biotin Disolve] 5,000 mcg PO DAILY 09/08/21 11/25/21 Cholecalciferol [Vitamin D3 (125 125 mcg PO DAILY 09/08/21 11/25/21 Mcg = 5000 Iu)] Cyanocobalamin (Vitamin B-12) 1,000 mcg PO DAILY 11/25/21 11/25/21 [Vitamin B-12] Allergies Allergy/AdvReac Type Severity Reaction Status Date / Time codeine AdvReac Hallucinati Verified 11/25/21 13:41 ons latex AdvReac Itching Verified 11/25/21 13:41 Review of Systems ROS Statement: Those systems with pertinent positive or pertinent negative responses have been documented in the HPI. ROS Other: All systems not noted in ROS Statement are negative. Constitutional: Denies: fever Eyes: Denies: eye pain ENT: Denies: ear pain Respiratory: Denies: cough Cardiovascular: Reports: as per HPI, chest pain Endocrine: Denies: fatigue Gastrointestinal: Denies: abdominal pain Genitourinary: Denies: dysuria Musculoskeletal: Denies: back pain Skin: Denies: rash Neurological: Denies: weakness Past Medical History Past Medical History: GERD/Reflux Additional Past Medical History / Comment(s): Hx mild palpitations. Osteopenia. c/o hx diarrhea, constipation, occ mild abd pain. History of Any Multi-Drug Resistant Organisms: None Reported Past Surgical History: Orthopedic Surgery, Tubal Ligation Additional Past Surgical History / Comment(s): LT KNEE SCOPE. COLONOSOCPY 2017. RT CATARACT REMOVED WITH LENS IMPLANTS Past Anesthesia/Blood Transfusion Reactions: Family History of Problems w/ Anesthesia, Postoperative Nausea & Vomiting (PONV) Additional Past Anesthesia/Blood Transfusion Reaction / Comment(s): Mother-PONV; no hx blood transfusion Past Psychological History: No Psychological Hx Reported Smoking Status: Never smoker Past Alcohol Use History: Occasional Past Drug Use History: None Reported - Past Family History Mother Family Medical History: CVA/TIA Father Family Medical History: Cancer, Chest Pain / Angina, CVA/TIA Additional Family Medical History / Comment(s): prostate CA. Sister(s) Family Medical History: Cancer Additional Family Medical History / Comment(s): breast CA. General Exam Limitations: no limitations General appearance: alert, in no apparent distress Head exam: Present: normocephalic Eye exam: Present: normal appearance Neck exam: Present: normal inspection Respiratory exam: Present: normal lung sounds bilaterally. Absent: chest wall tenderness Cardiovascular Exam: Present: regular rate, normal rhythm Expanded Peripheral pulses: 2+: Radial (R), Radial (L), Posterior Tibialis (R), Posterior Tibialis (L), Dorsalis Pedis (R), Dorsalis Pedis (L) GI/Abdominal exam: Present: soft. Absent: tenderness Extremities exam: Present: normal inspection. Absent: pedal edema, calf tenderness Neurological exam: Present: alert Psychiatric exam: Present: normal affect, normal mood Skin exam: Present: normal color Course Vital Signs 11/25/21 11/25/21 11:23 13:16 Temperature 97.7 F Pulse Rate 77 59 L Respiratory 18 18 Rate Blood Pressure 146/73 136/79 O2 Sat by Pulse 99 99 Oximetry EKG Findings - EKG Comments: EKG Findings:: Sinus rhythm at CT 5. IA 166. QRS 97. QT 368. QTC 380. Normal axis. Normal QRS. No acute ST change. Medical Decision Making - Medical Decision Making Patient reevaluated and updated. Case discussed with practitioner Ishmael, covering with Dr. enriquez, who will admit for hospital observation call. - Lab Data Result diagrams: 11/25/21 11:52 11/25/21 11:52 Lab Results 11/25/21 11/25/21 11/25/21 Range/Units 11:52 11:52 11:52 WBC 5.3 (3.8-10.6) k/uL RBC 4.52 (3.80-5.40) m/uL Hgb 14.3 (11.4-16.0) gm/dL Hct 43.8 (34.0-46.0) % MCV 96.9 (80.0-100.0) fL MCH 31.8 (25.0-35.0) pg MCHC 32.8 (31.0-37.0) g/dL RDW 11.6 (11.5-15.5) % Plt Count 296 (150-450) k/uL MPV 7.0 Neutrophils % 65 % Lymphocytes % 25 % Monocytes % 6 % Eosinophils % 2 % Basophils % 1 % Neutrophils # 3.4 (1.3-7.7) k/uL Lymphocytes # 1.3 (1.0-4.8) k/uL Monocytes # 0.3 (0-1.0) k/uL Eosinophils # 0.1 (0-0.7) k/uL Basophils # 0.0 (0-0.2) k/uL PT 10.6 (9.0-12.0) sec INR 1.0 (<1.2) APTT 22.5 (22.0-30.0) sec D-Dimer <0.17 (<0.60) mg/L FEU Sodium 138 (137-145) mmol/L Potassium 4.4 (3.5-5.1) mmol/L Chloride 105 (98-107) mmol/L Carbon Dioxide 24 (22-30) mmol/L Anion Gap 9 mmol/L BUN 13 (7-17) mg/dL Creatinine 0.97 (0.52-1.04) mg/dL Est GFR (CKD-EPI)AfAm 69 (>60 ml/min/1.73 sqM) Est GFR (CKD-EPI)NonAf 60 (>60 ml/min/1.73 sqM) Glucose 89 (74-99) mg/dL Calcium 9.8 (8.4-10.2) mg/dL Magnesium 2.3 (1.6-2.3) mg/dL Total Bilirubin 0.9 (0.2-1.3) mg/dL AST 32 (14-36) U/L ALT 16 (4-34) U/L Alkaline Phosphatase 82 (38-126) U/L Troponin I (0.000-0.034) ng/mL Total Protein 7.3 (6.3-8.2) g/dL Albumin 4.5 (3.5-5.0) g/dL 11/25/21 Range/Units 11:52 WBC (3.8-10.6) k/uL RBC (3.80-5.40) m/uL Hgb (11.4-16.0) gm/dL Hct (34.0-46.0) % MCV (80.0-100.0) fL MCH (25.0-35.0) pg MCHC (31.0-37.0) g/dL RDW (11.5-15.5) % Plt Count (150-450) k/uL MPV Neutrophils % % Lymphocytes % % Monocytes % % Eosinophils % % Basophils % % Neutrophils # (1.3-7.7) k/uL Lymphocytes # (1.0-4.8) k/uL Monocytes # (0-1.0) k/uL Eosinophils # (0-0.7) k/uL Basophils # (0-0.2) k/uL PT (9.0-12.0) sec INR (<1.2) APTT (22.0-30.0) sec D-Dimer (<0.60) mg/L FEU Sodium (137-145) mmol/L Potassium (3.5-5.1) mmol/L Chloride (98-107) mmol/L Carbon Dioxide (22-30) mmol/L Anion Gap mmol/L BUN (7-17) mg/dL Creatinine (0.52-1.04) mg/dL Est GFR (CKD-EPI)AfAm (>60 ml/min/1.73 sqM) Est GFR (CKD-EPI)NonAf (>60 ml/min/1.73 sqM) Glucose (74-99) mg/dL Calcium (8.4-10.2) mg/dL Magnesium (1.6-2.3) mg/dL Total Bilirubin (0.2-1.3) mg/dL AST (14-36) U/L ALT (4-34) U/L Alkaline Phosphatase (38-126) U/L Troponin I <0.012 (0.000-0.034) ng/mL Total Protein (6.3-8.2) g/dL Albumin (3.5-5.0) g/dL - Radiology Data Radiology results: image reviewed ( x-ray shows. Cardiomegaly. Scoliosis.) Disposition Clinical Impression: Chest pain Disposition: ADMITTED IP TO THIS HOSP Is patient prescribed a controlled substance at d/c from ED?: No Referrals: Carlos Torrez DO [Primary Care Provider] - 1-2 days Time of Disposition: 13:45
[2021-11-25 12:18] LABS: Basophils % (A) 1 %; Eosinophils # (A) 0.1 k/uL (0-0.7); Eosinophils % (A) 2 %; HCT 43.8 % (34.0-46.0); HGB 14.3 gm/dL (11.4-16.0); Lymphocytes # (A) 1.3 k/uL (1.0-4.8); Lymphocytes % (A) 25 %; MCH 31.8 pg (25.0-35.0); MCHC 32.8 g/dL (31.0-37.0); MCV 96.9 fL (80.0-100.0); Monocytes # (A) 0.3 k/uL (0-1.0); Monocytes % (A) 6 %; Neutrophils # (A) 3.4 k/uL (1.3-7.7); Neutrophils % (A) 65 %; Platelet Count 296 k/uL (150-450); RBC 4.52 m/uL (3.80-5.40); RDW 11.6 % (11.5-15.5); WBC 5.3 k/uL (3.8-10.6)
[2021-11-25 12:32] LABS: Albumin 4.5 g/dL (3.5-5.0); Calcium 9.8 mg/dL (8.4-10.2); Magnesium 2.3 mg/dL (1.6-2.3); Potassium 4.4 mmol/L (3.5-5.1); Total Bilirubin 0.9 mg/dL (0.2-1.3); Total Protein 7.3 g/dL (6.3-8.2)
[2021-11-25 12:36] LABS: Partial Thromboplastin Time 22.5 sec (22.0-30.0); Prothrombin Time 10.6 sec (9.0-12.0)
--- NOTE | 2021-11-25 12:39 | XR ---
EXAMINATION TYPE: XR chest 2V DATE OF EXAM: 11/25/2021 COMPARISON: Chest x-ray June 30, 2019 HISTORY: Chest pain and facial numbness. TECHNIQUE: Frontal and lateral views of the chest are obtained. FINDINGS: There is no suspicious focal air space opacity, pleural effusion, or pneumothorax seen. St able cardiomegaly. Scoliosis centered in the mid to lower thoracic spine redemonstrated. IMPRESSION: Cardiomegaly without acute pulmonary process. No significant change from prior.
[2021-11-25] MEDS ORDERED: NITROGLYCERIN SL TABS 0.4 MG TAB SUBLINGUAL PRN (13:46)
[2021-11-25] MEDS ORDERED: CAFFEINE CITRATE 60 MG/3 ML VIAL IV PRN (15:15)
[2021-11-25] MEDS ORDERED: REGADENOSON 0.4 MG/5 ML SYRINGE IV PRN (15:15)
[2021-11-25] MEDS ORDERED: AMINOPHYLLINE 500 MG/20 ML VIAL IV PRN (15:15)
[2021-11-25] MEDS ORDERED: NALOXONE 0.4 MG/ML 10 ML VIAL IVP PRN (15:15)
--- NOTE | 2021-11-25 15:30 | P.HPIM ---
History of Present Illness H&P Date: 11/25/21 Chief Complaint: Chest pain 71-year-old female with no significant past medical history presents to emergency department complaining of right sided jaw pain and chest pain. This occurred suddenly today while at rest, lasted for a few minutes, described as dull pressure-like, no other associated symptoms, resolved spontaneously with no recurrence. Patient reports that she has had a similar episode in the past but did not seek any medical attention at that time. She denies any toothaches or any recent dental work. She does not smoke, has no history of cardiac disease, no hypertension or hyperlipidemia. EKG shows normal sinus rhythm with no ST changes, troponin negative, chest x-ray shows no acute pathology. Patient will be admitted overnight for cardiac stress test Review of Systems Cardiovascular: Reports chest pain, Denies decreased exercise tolerance, Denies dyspnea on exertion, Denies edema, Denies high blood pressure, Denies irregular heart beat, Denies leg edema, Denies lightheadedness, Denies orthopnea, Denies paroxysmal nocturnal dyspnea, Denies rapid heart beat, Denies shortness of breath, Denies syncope Respiratory: Denies congestion, Denies cough, Denies wheezing Gastrointestinal: Reports abdominal pain, Reports dyspepsia Past Medical History Past Medical History: GERD/Reflux Additional Past Medical History / Comment(s): Hx mild palpitations. Osteopenia. c/o hx diarrhea, constipation, occ mild abd pain. History of Any Multi-Drug Resistant Organisms: None Reported Past Surgical History: Orthopedic Surgery, Tubal Ligation Additional Past Surgical History / Comment(s): LT KNEE SCOPE. COLONOSOCPY 2017. RT CATARACT REMOVED WITH LENS IMPLANTS Past Anesthesia/Blood Transfusion Reactions: Family History of Problems w/ Anesthesia, Postoperative Nausea & Vomiting (PONV) Additional Past Anesthesia/Blood Transfusion Reaction / Comment(s): Mother-PONV; no hx blood transfusion Past Psychological History: No Psychological Hx Reported Smoking Status: Never smoker Past Alcohol Use History: Occasional Past Drug Use History: None Reported - Past Family History Mother Family Medical History: CVA/TIA Father Family Medical History: Cancer, Chest Pain / Angina, CVA/TIA Additional Family Medical History / Comment(s): prostate CA. Sister(s) Family Medical History: Cancer Additional Family Medical History / Comment(s): breast CA. Medications and Allergies Home Medications Medication Instructions Recorded Confirmed Type Ascorbic Acid [Vitamin C] 1,000 mg PO DAILY 07/26/16 11/25/21 History Biotin [Biotin Disolve] 5,000 mcg PO DAILY 09/08/21 11/25/21 History Cholecalciferol [Vitamin D3 (125 125 mcg PO DAILY 09/08/21 11/25/21 History Mcg = 5000 Iu)] Cyanocobalamin (Vitamin B-12) 1,000 mcg PO DAILY 11/25/21 11/25/21 History [Vitamin B-12] Allergies Allergy/AdvReac Type Severity Reaction Status Date / Time codeine AdvReac Hallucinati Verified 11/25/21 13:41 ons latex AdvReac Itching Verified 11/25/21 13:41 Physical Exam Osteopathic Statement: *. No significant issues noted on an osteopathic structural exam other than those noted in the History and Physical/Consult. Vitals: Vital Signs Temp Pulse Pulse Resp BP BP Pulse Ox 11/25/21 15:00 98.1 F 69 20 160/69 98 11/25/21 14:20 97.8 F 64 18 129/74 99 11/25/21 13:16 59 L 18 136/79 99 11/25/21 11:23 97.7 F 77 18 146/73 99 Intake and Output 11/25/21 11/25/21 11/25/21 06:59 14:59 22:59 Other: Weight 68.039 kg - Constitutional General appearance: average body habitus, cooperative, no acute distress - EENT Eyes: EOMI, PERRLA - Neck Neck: normal ROM - Respiratory Respiratory: bilateral: CTA, negative: rhonchi, wheezing - Cardiovascular Rhythm: regular Heart sounds: normal: S1, S2 Abnormal Heart Sounds: no systolic murmur, no diastolic murmur, no rub - Gastrointestinal General gastrointestinal: no distended, normal bowel sounds, no tenderness - Integumentary Integumentary: no jaundiced, no pale - Neurologic Neurologic: CNII-XII intact - Musculoskeletal Musculoskeletal: strength equal bilaterally - Psychiatric Psychiatric: A&O x's 3, appropriate affect Results CBC & Chem 7: 11/25/21 11:52 11/25/21 11:52 Thrombosis Risk Factor Assmnt - Choose All That Apply Each Risk Factor Represents 2 Points: Age 61-74 years Thrombosis Risk Factor Assessment Total Risk Factor Score: 2 Thrombosis Risk Factor Assessment Level: Low Risk Assessment and Plan Plan: Chest pain -Patient reports pain starting in the jaw and radiating to her chest -She has had a few similar episodes in the past -Last stress test was several years ago and was negative -EKG shows normal sinus rhythm, no ST elevation or depression -Troponin negative, continue to trend -Patient is currently stable and chest pain-free -Admitted overnight with plan for cardiac stress test in the morning -Continue aspirin, check lipid panel -Patient further input from cardiology DVT prophylaxis Patient has no other significant medical history Anticipated discharge home tomorrow if stress test is normal Time with Patient: Less than 30
[2021-11-26 07:41] VITALS: BP 143/74; PULSE 59; RESP 18; TEMP 97.8
[2021-11-26 08:59] LABS: Chol/HDL Ratio 2.43 Ratio; LDL Cholesterol,Calculated 109.6 mg/dL (0.0-131.0); VLDL Calculation 12.84 mg/dL (5.00-40.00)
[2021-11-26] MEDS ORDERED: ASPIRIN 325 MG TAB PO SCH (09:00)
--- NOTE | 2021-11-26 12:03 | P.CRDCN ---
History of Present Illness History of present illness: HISTORY OF PRESENTING ILLNESS This is a pleasant 71-year-old female with no significant past medical history. 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 Krishan h tomshonda been asked to see in consultation for chest pain. She states yesterday she woke up in the morning feeling in her usual state of health when she noticed a discomfort in her right jaw/teeth but then slowly radiated to the center of her chest. It lasted for a few minutes and subsided on its own. She had no associated shortness of breath, dizziness, nausea, vomiting, diaphoresis or palpitations. In 9 said she recalls approximately 2 weeks ago also having some jaw discomfort on the left side but no chest pain associated at that time. She is active on a regular basis. She has no exertional chest pain. She used to follow in the office with Dr. Qureshi over 10 years ago for low blood pressure. She thinks she may have had a stress test then but is not positive. She has no family history significant for premature coronary artery disease. DIAGNOSTICS EKG reveals sinus rhythm heart rate of [address] or T wave abnormalities noted.. Telemetry tracings indicate sinus rhythm. Chest xray negative for an acute cardiopulmonary process. Laboratory reviewed, CBC unremarkable, d-dimer negative, sodium 138, potassium 4.4, creatinine 0.97, magnesium 2.3, cardiac enzymes negative 3, LDL 109, HDL 85. She takes no daily cardiac medications. REVIEW OF SYSTEMS At the time of my exam: CONSTITUTIONAL: Denies fever or chills. CARDIOVASCULAR: Denies chest pain, shortness of breath, orthopnea, PND or palpitations. RESPIRATORY: Denies cough. GASTROINTESTINAL: Denies abdominal pain, diarrhea, constipation, nausea or vomiting. MUSCULOSKELETAL: Denies myalgias. NEUROLOGIC: Denies numbness, tingling, headache or weakness. ENDOCRINE: Denies fatigue, weight change, polydipsia or polyurina. GENITOURINARY: Denies burning, hematuria or urgency with micturation. HEMATOLOGIC: Denies history of anemia or bleeding. PHYSICAL EXAMINATION Blood pressure 143/74 heart rate 59 afebrile and maintaining oxygen saturation on room air. CONSTITUTIONAL: No apparent distress. HEENT: Head is normocephalic. Pupils are equal, round. Sclerae anicteric. Mucous membranes of the mouth are moist. No JVD. No carotid bruit. CHEST EXAMINATION: Lungs are clear to auscultation. No chest wall tenderness is noted on palpation or with deep breathing. HEART EXAMINATION: Regular rate and rhythm. S1, S2 heard. No murmurs, gallops or rub. ABDOMEN: Soft, nontender. EXTREMITIES: 2+ peripheral pulses, no lower extremity edema and no calf tenderness. NEUROLOGIC EXAMINATION: Patient is awake, alert and oriented x3. ASSESSMENT Chest pain PLAN An acute coronary event has been ruled out. Decrease aspirin to 81 mg daily. Add metoprolol 12.5 mg daily. Obtain 2D echocardiogram and doppler study to assess cardiac structure and function. She can eat breakfast and increase activity walking in the hallway and assess for pain or pressure. If she remains chest pain free and echo is normal she can be discharged home to follow up in the office for a stress test. Thank you kindly for this consultation. Nurse Practitioner note has been reviewed, I agree with a documented findings and plan of care. Patient was seen and examined. Past Medical History Past Medical History: GERD/Reflux Additional Past Medical History / Comment(s): Hx mild palpitations. Osteopenia. c/o hx diarrhea, constipation, occ mild abd pain. History of Any Multi-Drug Resistant Organisms: None Reported Past Surgical History: Orthopedic Surgery, Tubal Ligation Additional Past Surgical History / Comment(s): LT KNEE SCOPE. COLONOSOCPY 2017. RT CATARACT REMOVED WITH LENS IMPLANTS Past Anesthesia/Blood Transfusion Reactions: Family History of Problems w/ A nesthesia, Postoperative Nausea & Vomiting (PONV) Additional Past Anesthesia/Blood Transfusion Reaction / Comment(s): Mother-PONV; no hx blood transfusion Past Psychological History: No Psychological Hx Reported Smoking Status: Never smoker Past Alcohol Use History: Occasional Past Drug Use History: None Reported - Past Family History Mother Family Medical History: CVA/TIA Father Family Medical History: Cancer, Chest Pain / Angina, CVA/TIA Additional Family Medical History / Comment(s): prostate CA. Sister(s) Family Medical History: Cancer Additional Family Medical History / Comment(s): breast CA. Medications and Allergies Home Medications Medication Instructions Recorded Confirmed Type Ascorbic Acid [Vitamin C] 1,000 mg PO DAILY 07/26/16 11/25/21 History Biotin [Biotin Disolve] 5,000 mcg PO DAILY 09/08/21 11/25/21 History Cholecalciferol [Vitamin D3 (125 125 mcg PO DAILY 09/08/21 11/25/21 History Mcg = 5000 Iu)] Cyanocobalamin (Vitamin B-12) 1,000 mcg PO DAILY 11/25/21 11/25/21 History [Vitamin B-12] Allergies Allergy/AdvReac Type Severity Reaction Status Date / Time codeine AdvReac Hallucinati Verified 11/25/21 13:41 ons latex AdvReac Itching Verified 11/25/21 13:41 Physical Exam Vitals: Vital Signs Temp Pulse Pulse Pulse Resp BP BP 11/26/21 07:00 97.8 F 59 L 18 11/26/21 02:15 69 75 15 11/26/21 02:01 97.5 F L 70 15 11/25/21 20:28 69 75 15 11/25/21 19:22 98.3 F 75 15 11/25/21 15:00 98.1 F 69 20 160/69 11/25/21 14:20 97.8 F 64 18 129/74 11/25/21 13:16 59 L 18 136/79 11/25/21 11:23 97.7 F 77 18 146/73 BP Pulse Ox 11/26/21 07:00 143/74 98 11/26/21 02:15 11/26/21 02:01 108/69 97 11/25/21 20:28 11/25/21 19:22 101/65 96 11/25/21 15:00 98 11/25/21 14:20 99 11/25/21 13:16 99 11/25/21 11:23 99 Intake and Output 11/25/21 11/26/21 11/26/21 22:59 06:59 14:59 Intake Total 118 Balance 118 Intake: Oral 118 Other: Voiding Method Toilet Toilet # Voids 2 2 Results 11/25/21 11:52 11/25/21 11:52 Cardiac Enzymes 11/25/21 11/25/21 11/25/21 Range/Units 11:52 11:52 15:52 AST 32 (14-36) U/L Troponin I <0.012 <0.012 (0.000-0.034) ng/mL 11/25/21 Range/Units 18:30 AST (14-36) U/L Troponin I <0.012 (0.000-0.034) ng/mL Coagulation 11/25/21 Range/Units 11:52 PT 10.6 (9.0-12.0) sec APTT 22.5 (22.0-30.0) sec CBC 11/25/21 Range/Units 11:52 WBC 5.3 (3.8-10.6) k/uL RBC 4.52 (3.80-5.40) m/uL Hgb 14.3 (11.4-16.0) gm/dL Hct 43.8 (34.0-46.0) % Plt Count 296 (150-450) k/uL Comprehensive Metabolic Panel 11/25/21 Range/Units 11:52 Sodium 138 (137-145) mmol/L Potassium 4.4 (3.5-5.1) mmol/L Chloride 105 (98-107) mmol/L Carbon Dioxide 24 (22-30) mmol/L BUN 13 (7-17) mg/dL Creatinine 0.97 (0.52-1.04) mg/dL Glucose 89 (74-99) mg/dL Calcium 9.8 (8.4-10.2) mg/dL AST 32 (14-36) U/L ALT 16 (4-34) U/L Alkaline Phosphatase 82 (38-126) U/L Total Protein 7.3 (6.3-8.2) g/dL Albumin 4.5 (3.5-5.0) g/dL Current Medications Generic Name Dose Route Start Last Admin Trade Name Freq PRN Reason Stop Dose Admin Naloxone HCl 0.2 mg 11/25/21 15:15 Naloxone 0.4 Mg/Ml 10 Ml Vial IVP Q2M PRN Opioid Reversal Nitroglycerin 0.4 mg 11/25/21 13:46 Nitroglycerin Sl Tabs 0.4 Mg Tab SUBLINGUAL Q5M PRN Chest Pain Sodium Chloride 10 ml 11/25/21 21:00 11/26/21 08:20 Sodium Chloride 0.9% Flush 10 Ml Syringe IV 10 ml BID KYLIE Administration Intake and Output 11/25/21 11/26/21 11/26/21 22:59 06:59 14:59 Intake Total 118 Balance 118 Intake: Oral 118 Other: Voiding Method Toilet Toilet # Voids 2 2 11/25/21 11:52 11/25/21 11:52
[2021-11-26] MEDS ORDERED: METOPROLOL TARTRATE 12.5 MG TAB PO SCH (12:15)
--- NOTE | 2021-11-26 12:54 | ECHOF ---
Referral Reason:cp MEASUREMENTS -------- HEIGHT: 165.1 cm WEIGHT: 68.0 kg BP: RVIDd: 2.6 cm (< 3.3) IVSd: 0.9 cm (0.6 - 1.1) LVIDd: 4.5 cm (3.9 - 5.3) LVPWd: 1.2 cm (0.6 - 1.1) IVSs: 1.4 cm LVIDs: 2.7 cm LVPWs: 1.8 cm LA Diam: 2.9 cm (2.7 - 3.8) Ao Diam: 2.3 cm (2.0 - 3.7) AV Cusp: 1.6 cm (1.5 - 2.6) LA Diam: 3.2 cm (2.7 - 3.8) MV EXCURSION: 13.818 mm (> 18.000) MV EF SLOPE: 76 mm/s (70 - 150) EPSS: 0.5 cm MV E Boone: 0.44 m/s MV DecT: 158 ms MV A [place]: 0.65 m/s MV E/A Ratio: 0.67 RAP: 5.00 mmHg RVSP: 14.10 mmHg FINDINGS -------- Sinus rhythm. This was a technically good study. LV size, wall thickness and systolic function are normal, with an EF greater than 55%. The left myrna tricular size is normal. The right ventricle is normal in size. The left atrial size is normal. The right atrial size is normal. The aortic valve is trileaflet, and appears structurally normal. No aortic stenosis or regurgitation. Mild mitral regurgitation is present. Mild tricuspid regurgitation present. Right ventricular systolic pressure is normal at < 35 mmHg. There is no pulmonic regurgitation present. Echo free space indicative of a pericardial fat pad. CONCLUSIONS -------- 1. LV size, wall thickness and systolic function are normal, with an EF greater than 55%. 2. The left ventricular size is normal. 3. The right ventricle is normal in size. 4. The left atrial size is normal. 5. The right atrial size is normal. 6. The aortic valve is trileaflet, and appears structurally normal. No aortic stenosis or regurgitati on. 7. Mild mitral regurgitation is present. 8. Mild tricuspid regurgitation present. 9. Echo free space indicative of a pericardial fat pad. [employer] FLOORMAN: Leigh Shrestha RDCS
[2021-11-26] MEDS ORDERED: ATORVASTATIN 20 MG TAB PO SCH (21:00)
[2021-11-27] MEDS ORDERED: ASPIRIN 81 MG PO SCH (09:00)
--- NOTE | 2021-11-27 17:37 | P.DS ---
Providers Date of admission: 11/25/21 13:46 Expected date of discharge: 11/26/21 Attending physician: Jaylin Jones, Consults: 11/25/21 13:46 Consult Physician Urgent Consulting Provider: Tariq Dalal Consult Reason/Comments: cp Do you want consulting provider notified?: Yes 11/25/21 15:15 Consult Physician Routine Consulting Provider: [facility] Consult Reason/Comments: Chest Pain Do you want consulting provider notified?: Already Contacted Primary care physician: Carlos Torrez - Discharge Diagnosis(es) (1) Chest pain Status: Acute Priority: High Hospital Course: HPI from admission on 11/25/2021: 71-year-old female with no significant past medical history presents to emergency department complaining of right sided jaw pain and chest pain. This occurred suddenly today while at rest, lasted for a few minutes, described as dull pressure-like, no other associated symptoms, resolved spontaneously with no recurrence. Patient reports that she has had a similar episode in the past but did not seek any medical attention at that time. She denies any toothaches or any recent dental work. She does not smoke, has no history of cardiac disease, no hypertension or hyperlipidemia. EKG shows normal sinus rhythm with no ST changes, troponin negative, chest x-ray shows no acute pathology. Patient will be admitted overnight for cardiac stress test Hospital course: Patient was admitted for chest pain workup that presented with mostly atypical features. She was observed overnight, troponin remained negative 3, EKG showed no ST changes, no T-wave inversions. Patient remained free of chest pain throughout her admission. She was evaluated by cardiology and was deemed a relatively low risk and may be discharged home to follow up for a stress test next week. She had a 2-D echo performed but has not been read yet. She was also started on metoprolol, aspirin. Cholesterol triglyceride levels were elevated, but patient was adamant about trying lifestyle changes and dieting first before starting a statin. She was counseled extensively on the risks of benefits, and was placed to repeat her lipid levels in 3-6 months. Patient was eventually discharged home the following day in stable condition. She will follow up with cardiology over the following week Assessment: - Constitutional General appearance: average body habitus, cooperative, no acute distress - EENT Eyes: EOMI, PERRLA - Neck Neck: normal ROM - Respiratory Respiratory: bilateral: CTA, negative: rhonchi, wheezing - Cardiovascular Rhythm: regular Heart sounds: normal: S1, S2 Abnormal Heart Sounds: no systolic murmur, no diastolic murmur, no rub - Gastrointestinal General gastrointestinal: no distended, normal bowel sounds, no tenderness - Integumentary Integumentary: no jaundiced, no pale - Neurologic Neurologic: CNII-XII intact - Musculoskeletal Musculoskeletal: strength equal bilaterally - Psychiatric Psychiatric: A&O x's 3, appropriate affect Patient Condition at Discharge: Good Plan - Discharge Summary Discharge Rx Participant: Yes New Discharge Prescriptions: New Metoprolol Tartrate [Lopressor] 12.5 mg PO DAILY #30 tab Aspirin 81 mg PO DAILY Continue Ascorbic Acid [Vitamin C] 1,000 mg PO DAILY Biotin [Biotin Disolve] 5,000 mcg PO DAILY Cholecalciferol [Vitamin D3 (125 Mcg = 5000 Iu)] 125 mcg PO DAILY Cyanocobalamin (Vitamin B-12) [Vitamin B-12] 1,000 mcg PO DAILY Discharge Medication List Ascorbic Acid [Vitamin C] 1,000 mg PO DAILY 07/26/16 [History] Biotin [Biotin Disolve] 5,000 mcg PO DAILY 09/08/21 [History] Cholecalciferol [Vitamin D3 (125 Mcg = 5000 Iu)] 125 mcg PO DAILY 09/08/21 [History] Cyanocobalamin (Vitamin B-12) [Vitamin B-12] 1,000 mcg PO DAILY 11/25/21 [History] Aspirin 81 mg PO DAILY 11/26/21 [Rx] Metoprolol Tartrate [Lopressor] 12.5 mg PO DAILY #30 tab 11/26/21 [Rx] Follow up Appointment(s)/Referral(s): Celestino Dillon MD [STAFF PHYSICIAN] - 11/29/21 11:15 am Carlos Torrez DO [Primary Care Provider] - 1-2 days Patient Instructions/Handouts: Chest Pain (DC) Discharge Disposition: HOME SELF-CARE
== END 2021-11-26 14:45 | disposition home or self-care (01) ==
LOC: EC 11:15 → 6NMEDSUR 13:46
PROVIDERS: ADMIT Internal Medicine; ATTEND Internal Medicine
DX: R07.89 Other chest pain (principal); R68.84 Jaw pain; R00.2 Palpitations; M54.2 Cervicalgia; K08.89 Other specified disorders of teeth and supporting structures; K59.00 Constipation, unspecified; K21.9 Gastro-esophageal reflux disease without esophagitis; M85.80 Other specified disorders of bone density and structure, unspecified site; E78.2 Mixed hyperlipidemia; I08.1 Rheumatic disorders of both mitral and tricuspid valves; Z88.5 Allergy status to narcotic agent; Z91.040 Latex allergy status; Z71.9 Counseling, unspecified; Z80.3 Family history of malignant neoplasm of breast; Z82.3 Family history of stroke; Z82.49 Family history of ischemic heart disease and other diseases of the circulatory system; Z80.42 Family history of malignant neoplasm of prostate; Z84.89 Family history of other specified conditions
CPT/HCPCS: 99285; 36415; 93005; 93306; 85379; 80061; 80053; 83735; 84484; 85025; 85610; 85730; 71046; G0378 ×2

== ENCOUNTER → 2022-02-06 | Outpatient (CLI) | payer MEDICARE ==
--- NOTE | 2022-02-06 15:03 | US ---
EXAMINATION TYPE: US kidneys/renal and bladder DATE OF EXAM: 02/06/2022 COMPARISON: NONE CLINICAL HISTORY: N18.31 CHRONIC KIDNEY DISEASE, STAGE 3A. CKD EXAM MEASUREMENTS: Right Kidney: 9.2 x 3.4 x 4.1 cm Left Kidney: 9.5 x 4.6 x 4.5 cm Right Kidney: Lower pole gassed out, slightly dilated renal pelvis= 0.7 cm Left Kidney: Appeared wnl Bladder: wnl Bilateral Jets seen: Yes IMPRESSION: Mild prominence of the right renal pelvis. This may be due to an extrarenal
== END | disposition home or self-care (01) ==
LOC: RADUSWWP 13:26
PROVIDERS: ATTEND Internal Medicine
DX: N18.31 Chronic kidney disease, stage 3a (principal)
CPT/HCPCS: 76770

== ENCOUNTER 2023-10-23 12:32 | Observation (INO) | payer MEDICARE ==
[2023-10-23 12:57] VITALS: RESP 16
--- NOTE | 2023-10-23 13:01 | ED ---
General Adult HPI - General Chief complaint: Weakness Stated complaint: Neausea Time Seen by Provider: 10/23/23 12:40 Source: patient, RN notes reviewed, old records reviewed Mode of arrival: ambulatory Limitations: no limitations - History of Present Illness Initial comments: This is a 73-year-old female who presents to the emergency department stating that on Sunday she started feeling ill she had an episode of diarrhea and after that she took an antidiarrhea so she had no diarrhea since. Patient states after that she started having bodyaches in her back shoulders and neck. Patient states she was very nauseated today. Patient she went to the bathroom got up and immediately passed out. Patient states she struck her head but was not dazed and did not lose consciousness. Patient denies any blood thinners. Patient states she had some chest achiness similar to the achiness she is having in her back and neck but denies any difficulty breathing or shortness of breath. Patient states all day Sunday she was nauseated and did not feel well and Sunday she felt fine but this morning she woke up and was lightheaded and nauseous so she decided to come to the emergency department. - Related Data Home Medications Medication Instructions Recorded Confirmed Ascorbic Acid [Vitamin C] 1,000 mg PO DAILY 07/26/16 11/25/21 Biotin [Biotin Disolve] 5,000 mcg PO DAILY 09/08/21 11/25/21 Cholecalciferol [Vitamin D3 (125 125 mcg PO DAILY 09/08/21 11/25/21 Mcg = 5000 Iu)] Cyanocobalamin (Vitamin B-12) 1,000 mcg PO DAILY 11/25/21 11/25/21 [Vitamin B-12] Previous Rx's Medication Instructions Recorded Aspirin 81 mg PO DAILY 11/26/21 Metoprolol Tartrate [Lopressor] 12.5 mg PO DAILY #30 tab 11/26/21 Allergies Allergy/AdvReac Type Severity Reaction Status Date / Time codeine AdvReac Hallucinati Verified 11/25/21 13:41 ons latex AdvReac Itching Verified 11/25/21 13:41 Review of Systems ROS Statement: Those systems with pertinent positive or pertinent negative responses have been documented in the HPI. ROS Other: All systems not noted in ROS Statement are negative. Past Medical History Past Medical History: GERD/Reflux Additional Past Medical History / Comment(s): Hx mild palpitations. Osteopenia. c/o hx diarrhea, constipation, occ mild abd pain. History of Any Multi-Drug Resistant Organisms: None Reported Past Surgical History: Orthopedic Surgery, Tubal Ligation Additional Past Surgical History / Comment(s): LT KNEE SCOPE. COLONOSOCPY 2017. RT CATARACT REMOVED WITH LENS IMPLANTS Past Anesthesia/Blood Transfusion Reactions: Family History of Problems w/ Anesthesia, Postoperative Nausea & Vomiting (PONV) Additional Past Anesthesia/Blood Transfusion Reaction / Comment(s): Mother-PONV; no hx blood transfusion Past Psychological History: No Psychological Hx Reported Smoking Status: Never smoker Past Alcohol Use History: Occasional Past Drug Use History: None Reported - Past Family History Mother Family Medical History: CVA/TIA Father Family Medical History: Cancer, Chest Pain / Angina, CVA/TIA Additional Family Medical History / Comment(s): prostate CA. Sister(s) Family Medical History: Cancer Additional Family Medical History / Comment(s): breast CA. General Exam - General Exam Comments Initial Comments: GENERAL: Patient is well-developed and well-nourished. Patient is nontoxic and well-hydr ated and is in mild distress. ENT: Neck is soft and supple. No significant lymphadenopathy is noted. Oropharynx is clear. Moist mucous membranes. Neck has full range of motion without eliciting any pain. EYES: The sclera were anicteric and conjunctiva were pink and moist. Extraocular movements were intact and pupils were equal round and reactive to light. Eyelids were unremarkable. PULMONARY: Unlabored respirations. Good breath sounds bilaterally. No audible rales rhonchi or wheezing was noted. CARDIOVASCULAR: There is a regular rate and rhythm without any murmurs gallops or rubs. ABDOMEN: Soft and nontender with normal bowel sounds. SKIN: Skin is clear with no lesions or rashes and otherwise unremarkable. NEUROLOGIC: Patient is alert and oriented x3. Cranial nerves II through XII are grossly intact. Motor and sensory are also intact. Normal speech, volume and content. Symmetrical smile. MUSCULOSKELETAL: Normal extremities with adequate strength and full range of motion. No lower extremity swelling or edema. No calf tenderness. LYMPHATICS: No significant lymphadenopathy is noted PSYCHIATRIC: Normal psychiatric evaluation. Limitations: no limitations Course Vital Signs 10/23/23 12:34 Temperature 98.5 F Pulse Rate 89 Respiratory 16 Rate Blood Pressure 115/77 O2 Sat by Pulse 98 Oximetry Medical Decision Making - Medical Decision Making EKG is interpreted by myself but EKG shows a sinus bradycardia 55 bpm SC interval 193 QRS is 97 QT interval 399 QTc is 387. Patient's EKG shows no ST segment ovation or depression. Was pt. sent in by a medical professional or institution ([facility], [employer], urgent care, hospital, or jail...) When possible be specific @ -No Did you speak to anyone other than the patient for history (EMS, parent, family, police, friend...)? What history was obtained from this source @ -No Did you review nursing and triage notes (agree or disagree)? Why? @ -I reviewed and agree with nursing and triage notes Were old charts reviewed (outside hosp., previous admission, EMS record, old EKG, old radiological studies, urgent care reports/EKG's, jail records)? Report findings @ -No old charts were reviewed Differential Diagnosis (chest pain, altered mental status, abdominal pain women, abdominal pain men, vaginal bleeding, weakness, fever, dyspnea, syncope, headac he, dizziness, GI bleed, back pain, seizure, CVA, palpatations, mental health, musculoskeletal)? @ -Differential Chest Pain: Stable Angina, Unstable Angina, STEMI, NSTEMI Aortic Dissection, Pneumothorax, Musculoskeletal, Esophageal Spasm GERD, Cholecystitis, Pancreatitis, Zoster, this is not meant to be an all-inclusive list. Differential Syncope: Valvular disease, hypertrophic cardiomyopathy, pulmonary embolism, tamponade, tachycardia, bradycardia, AK, hypovolemia, hemorrhage, dissection, anemia, intracranial hemorrhage, seizure, hypoglycemia, carbon monoxide poisoning, this is not meant to be an all-inclusive list. EKG interpreted by me (3pts min.). @ -As above X-rays interpreted by me (1pt min.). @ -Chest x-ray shows no acute abnormality CT interpreted by me (1pt min.). @ -None done U/S interpreted by me (1pt. min.). @ -None done What testing was considered but not performed or refused? (CT, X-rays, U/S, labs)? Why? @ -None What meds were considered but not given or refused? Why? @ -None Did you discuss the management of the patient with other professionals (professionals i.e. Dr., PA, [employer], lab, RT, psych nurse, social work supervisor, waiter/waitress head, teacher, [employer]oc airspace control officer, residential case manager)? Give summary @ -I spoke with Dr. Dumont agreed to admit the patient admit the patient wrote admitting orders Was smoking cessation discussed for >3mins.? @ -No Was critical care preformed (if so, how long)? @ -No Were there social determinants of health that impacted care today? How? (Homelessness, low income, unemployed, alcoholism, drug addiction, transportation, low edu. Level, literacy, decrease access to med. care, longterm, rehab)? @ -No Was there de-escalation of care discussed even if they declined (Discuss DNR or withdrawal of care, Hospice)? DNR status @ -No What co-morbidities impacted this encounter? (DM, HTN, Smoking, COPD, CAD, Cancer, CVA, ARF, Chemo, Hep., AIDS, mental health diagnosis, sleep apnea, morbid obesity)? @ -None Was patient admitted / discharged? Hospital course, mention meds given and route, prescriptions, significant lab abnormalities, going to OR and other perti ne info. @ -Patient was mildly nauseous in the emergency department she did receive some IV fluids and she will be admitted to Dr. Dumont for further monitoring. Consult will be placed for cardiology Undiagnosed new problem with uncertain prognosis? @ -No Drug Therapy requiring intensive monitoring for toxicity (Heparin, Nitro, Insulin, Cardizem)? @ -No Were any procedures done? @ -No Diagnosis/symptom? @ -Chest pain Acute, or Chronic, or Acute on Chronic? @ -Acute Uncomplicated (without systemic symptoms) or Complicated (systemic symptoms)? @ -Complicated Side effects of treatment? @ -No Exacerbation, Progression, or Severe Exacerbation? @ -No Poses a threat to life or bodily function? How? (Chest pain, USA, AK, pneumonia, PE, COPD, DKA, ARF, appy, cholecystitis, CVA, Diverticulitis, Homicidal, Suicidal, threat to staff... and all critical care pts) @ -Yes this could be secondary to an arrhythmia which could potentially kill her Diagnosis/symptom? @ -Syncope Acute, or Chronic, or Acute on Chronic? @ -Acute Uncomplicated (without systemic symptoms) or Complicated (systemic symptoms)? @ -Complicated Side effects of treatment? @ -None Exacerbation, Progression, or Severe Exacerbation] @ -No Poses a threat to life or bodily function? @ -Yes this could be secondary to an arrhythmia and this could lead to - Lab Data Result diagrams: 10/23/23 13:00 10/23/23 13:00 Lab Results 10/23/23 10/23/23 10/23/23 Range/Units 13:00 13:00 13:00 WBC 4.2 (3.8-10.6) k/uL RBC 4.18 (3.80-5.40) m/uL Hgb 13.4 (11.4-16.0) gm/dL Hct 39.2 (34.0-46.0) % MCV 93.8 (80.0-100.0) fL MCH 32.0 (25.0-35.0) pg MCHC 34.1 (31.0-37.0) g/dL RDW 11.9 (11.5-15.5) % Plt Count 266 (150-450) k/uL MPV 6.9 Neutrophils % 59 % Lymphocytes % 24 % Monocytes % 10 % Eosinophils % 2 % Basophils % 1 % Neutrophils # 2.5 (1.3-7.7) k/uL Lymphocytes # 1.0 (1.0-4.8) k/uL Monocytes # 0.4 (0-1.0) k/uL Eosinophils # 0.1 (0-0.7) k/uL Basophils # 0.0 (0-0.2) k/uL PT 10.6 (10.0-12.5) sec INR 1.0 (<1.2) APTT 22.2 (22.0-30.0) sec Sodium 137 (137-145) mmol/L Potassium 3.9 (3.5-5.1) mmol/L Chloride 108 H (98-107) mmol/L Carbon Dioxide 23 (22-30) mmol/L Anion Gap 6 mmol/L BUN 14 (7-17) mg/dL Creatinine 0.98 (0.52-1.04) mg/dL Est GFR (CKD-EPI)AfAm 67 (>60 ml/min/1.73 sqM) Est GFR (CKD-EPI)NonAf 58 (>60 ml/min/1.73 sqM) Glucose 95 (74-99) mg/dL Plasma Lactic Acid Kaiser (0.7-2.0) mmol/L Calcium 9.0 (8.4-10.2) mg/dL Magnesium 2.0 (1.6-2.3) mg/dL Total Bilirubin 0.4 (0.2-1.3) mg/dL AST 34 (14-36) U/L ALT 16 (4-34) U/L Alkaline Phosphatase 75 (38-126) U/L Troponin I (0.000-0.034) ng/mL Total Protein 5.7 L (6.3-8.2) g/dL Albumin 3.5 (3.5-5.0) g/dL Urine Color Urine Appearance (Clear) Urine pH (5.0-8.0) Ur Specific [place] (1.001-1.035) Urine Protein (Negative) Urine Glucose (UA) (Negative) Urine Ketones (Negative) Urine Blood (Negative) Urine Nitrite (Negative) Urine Bilirubin (Negative) Urine Urobilinogen (<2.0) mg/dL Ur Leukocyte Esterase (Negative) Influenza Type A (PCR) (Not Detectd) Influenza Type B (PCR) (Not Detectd) RSV (PCR) (Not Detectd) SARS-CoV-2 (PCR) (Not Detectd) 10/23/23 10/23/23 10/23/23 Range/Units 13:00 13:00 13:00 WBC (3.8-10.6) k/uL RBC (3.80-5.40) m/uL Hgb (11.4-16.0) gm/dL Hct (34.0-46.0) % MCV (80.0-100.0) fL MCH (25.0-35.0) pg MCHC (31.0-37.0) g/dL RDW (11.5-15.5) % Plt Count (150-450) k/uL MPV Neutrophils % % Lymphocytes % % Monocytes % % Eosinophils % % Basophils % % Neutrophils # (1.3-7.7) k/uL Lymphocytes # (1.0-4.8) k/uL Monocytes # (0-1.0) k/uL Eosinophils # (0-0.7) k/uL Basophils # (0-0.2) k/uL PT (10.0-12.5) sec INR (<1.2) APTT (22.0-30.0) sec Sodium (137-145) mmol/L Potassium (3.5-5.1) mmol/L Chloride (98-107) mmol/L Carbon Dioxide (22-30) mmol/L Anion Gap mmol/L BUN (7-17) mg/dL Creatinine (0.52-1.04) mg/dL Est GFR (CKD-EPI)AfAm (>60 ml/min/1.73 sqM) Est GFR (CKD-EPI)NonAf (>60 ml/min/1.73 sqM) Glucose (74-99) mg/dL Plasma Lactic Acid Kaiser 0.8 (0.7-2.0) mmol/L Calcium (8.4-10.2) mg/dL Magnesium (1.6-2.3) mg/dL Total Bilirubin (0.2-1.3) mg/dL AST (14-36) U/L ALT (4-34) U/L Alkaline Phosphatase (38-126) U/L Troponin I <0.012 (0.000-0.034) ng/mL Total Protein (6.3-8.2) g/dL Albumin (3.5-5.0) g/dL Urine Color Urine Appearance (Clear) Urine pH (5.0-8.0) Ur Specific [place] (1.001-1.035) Urine Protein (Negative) Urine Glucose (UA) (Negative) Urine Ketones (Negative) Urine Blood (Negative) Urine Nitrite (Negative) Urine Bilirubin (Negative) Urine Urobilinogen (<2.0) mg/dL Ur Leukocyte Esterase (Negative) Influenza Type A (PCR) Not Detected (Not Detectd) Influenza Type B (PCR) Not Detected (Not Detectd) RSV (PCR) Not Detected (Not Detectd) SARS-CoV-2 (PCR) Not Detected (Not Detectd) 10/23/23 Range/Units 13:00 WBC (3.8-10.6) k/uL RBC (3.80-5.40) m/uL Hgb (11.4-16.0) gm/dL Hct (34.0-46.0) % MCV (80.0-100.0) fL MCH (25.0-35.0) pg MCHC (31.0-37.0) g/dL RDW (11.5-15.5) % Plt Count (150-450) k/uL MPV Neutrophils % % Lymphocytes % % Monocytes % % Eosinophils % % Basophils % % Neutrophils # (1.3-7.7) k/uL Lymphocytes # (1.0-4.8) k/uL Monocytes # (0-1.0) k/uL Eosinophils # (0-0.7) k/uL Basophils # (0-0.2) k/uL PT (10.0-12.5) sec INR (<1.2) APTT (22.0-30.0) sec Sodium (137-145) mmol/L Potassium (3.5-5.1) mmol/L Chloride (98-107) mmol/L Carbon Dioxide (22-30) mmol/L Anion Gap mmol/L BUN (7-17) mg/dL Creatinine (0.52-1.04) mg/dL Est GFR (CKD-EPI)AfAm (>60 ml/min/1.73 sqM) Est GFR (CKD-EPI)NonAf (>60 ml/min/1.73 sqM) Glucose (74-99) mg/dL Plasma Lactic Acid Kaiser (0.7-2.0) mmol/L Calcium (8.4-10.2) mg/dL Magnesium (1.6-2.3) mg/dL Total Bilirubin (0.2-1.3) mg/dL AST (14-36) U/L ALT (4-34) U/L Alkaline Phosphatase (38-126) U/L Troponin I (0.000-0.034) ng/mL Total Protein (6.3-8.2) g/dL Albumin (3.5-5.0) g/dL Urine Color Colorless Urine Appearance Clear (Clear) Urine pH 5.5 (5.0-8.0) Ur Specific [place] 1.004 (1.001-1.035) Urine Protein Negative (Negative) Urine Glucose (UA) Negative (Negative) Urine Ketones Negative (Negative) Urine Blood Negative (Negative) Urine Nitrite Negative (Negative) Urine Bilirubin Negative (Negative) Urine Urobilinogen <2.0 (<2.0) mg/dL Ur Leukocyte Esterase Negative (Negative) Influenza Type A (PCR) (Not Detectd) Influenza Type B (PCR) (Not Detectd) RSV (PCR) (Not Detectd) SARS-CoV-2 (PCR) (Not Detectd) Disposition Clinical Impression: Minor head trauma, Syncope, Chest pain Disposition: ADMITTED IP TO THIS HOSP Referrals: Carlos Torrez DO [Primary Care Provider] - 1-2 days Time of Disposition: 15:53
[2023-10-23 13:18] LABS: Basophils % (A) 1 %; Eosinophils # (A) 0.1 k/uL (0-0.7); Eosinophils % (A) 2 %; HCT 39.2 % (34.0-46.0); HGB 13.4 gm/dL (11.4-16.0); Lymphocytes % (A) 24 %; MCHC 34.1 g/dL (31.0-37.0); MCV 93.8 fL (80.0-100.0); Mean Platelet Volume 6.9; Monocytes # (A) 0.4 k/uL (0-1.0); Monocytes % (A) 10 %; Neutrophils # (A) 2.5 k/uL (1.3-7.7); Neutrophils % (A) 59 %; Platelet Count 266 k/uL (150-450); RBC 4.18 m/uL (3.80-5.40); RDW 11.9 % (11.5-15.5); WBC 4.2 k/uL (3.8-10.6)
[2023-10-23 13:33] LABS: Partial Thromboplastin Time 22.2 sec (22.0-30.0); Prothrombin Time 10.6 sec (10.0-12.5)
[2023-10-23 13:37] LABS: ALT 16 U/L (4-34); AST 34 U/L (14-36); African American GFR (CKD) 67 (>60 ml/min/1.73 sqM); Albumin 3.5 g/dL (3.5-5.0); Alkaline Phosphatase 75 U/L (38-126); Anion Gap 6 mmol/L; Blood Urea Nitrogen 14 mg/dL (7-17); Carbon Dioxide 23 mmol/L (22-30); Chloride 108 mmol/L (98-107); Glucose 95 mg/dL (74-99); Non-African American GFR(CKD) 58 (>60 ml/min/1.73 sqM); Potassium 3.9 mmol/L (3.5-5.1); Sodium 137 mmol/L (137-145); Total Bilirubin 0.4 mg/dL (0.2-1.3); Total Protein 5.7 g/dL (6.3-8.2)
[2023-10-23] MEDS: SODIUM CHLORIDE 0.9% 1,000 ML IV STA (13:43)
[2023-10-23] MEDS: ONDANSETRON 4 MG/2 ML VIAL IVP STA (13:44)
[2023-10-23 14:59] LABS: Appearance,Urine Clear (Clear); Bilirubin,Urine Negative (Negative); Blood,Urine Negative (Negative); Color,Urine Colorless; Glucose,Urine (UA) Negative (Negative); Ketones,Urine Negative (Negative); Leukocyte Esterase,Urine Negative (Negative); Nitrite,Urine Negative (Negative); PH, Urine 5.5 (5.0-8.0); Protein,Urine Negative (Negative); Specific Gravity,Urine 1.004 (1.001-1.035); Urobilinogen,Urine <2.0 mg/dL (<2.0)
--- NOTE | 2023-10-23 15:01 | XR ---
EXAMINATION TYPE: XR chest 2V DATE OF EXAM: 10/23/2023 COMPARISON: 11/25/2021 HISTORY: 73-year-old female with weakness TECHNIQUE: PA and lateral views FINDINGS: The cardiomediastinal silhouette, aorta, and pulmonary vasculature are within normal limits. Lungs an d pleural spaces are clear. Dextroconvex scoliosis of the thoracic spine. IMPRESSION: No acute cardiopulmonary process. Prominent dextroconvex scoliosis.
[2023-10-23] MEDS ORDERED: NITROGLYCERIN SL TABS 0.4 MG TAB SUBLINGUAL PRN (15:53)
--- NOTE | 2023-10-23 16:17 | CT ---
EXAMINATION: CTA CHEST WITH IV CONTRAST, CT PULMONARY ANGIOGRAM DATE OF EXAM: 10/23/2023 4:05 PM HISTORY: Chest pain with syncope. TECHNIQUE: CTA examination of the chest was performed following the intravenous administration of iod inated contrast. Sagittal, coronal and 3-D reformatted images were provided. CT dose lowering [employer] ues were used, to include: automated exposure control, adjustment for patient size, and or use of ite rative reconstruction. COMPARISON: None. FINDINGS: Lungs: Normal. Pleura: Normal. Mediastinum and Paz: Normal. Pulmonary Arteries: Normal. Cardiovascular: Normal. Upper Abdomen: Small hiatal hernia. The visualized upper abdomen otherwise appears unremarkable. Chest Wall: Normal. Musculoskeletal: Dextroconvex curvature of the thoracic spine is noted. There are no acute osseous ab normalities. IMPRESSION: 1. No evidence of pulmonary embolism. 2. No evidence of thoracic aortic aneurysm or dissection. 3. No evidence of pneumonia, pleural or pericardial effusion.
[2023-10-23] MEDS: ASPIRIN 81 MG PO STA (17:56)
--- NOTE | 2023-10-23 20:20 | P.HPIM ---
History of Present Illness H&P Date: 10/23/23 Chief Complaint: Not feeling well This is a very pleasant 73-year-old patient is follows Dr. Torrez. Rather good health. Sunday evening she just felt nauseated. It was just feeling off. Then she went to the bathroom and then she passed out falling forward. When she got up she felt achiness from the throat and the through the upper body. Also was perspiring. She went back to sleep. Next day that is Sunday all day she just did not feel right felt nauseated. Yesterday she made an appointment to see her housing director Dr. ROSY Dillon. Today when she was getting ready to come in she started again perspiring started feeling weak just not feeling right., And asked a neighbor to bring her to the hospital. In the past she has been told a long time ago that she may have hypoglycemia. Review of systems: GEN.: None EYES: None HEENT: None NECK: None RESPIRATORY: None CARDIOVASCULAR: As above e GASTROINTESTINAL: None GENITOURINARY: None MUSCULOSKELETAL: None LYMPHATICS: None HEMATOLOGICAL: None PSYCHIATRY: None NEUROLOGICAL: No focal symptoms e Social history: Alcohol occasionally. Does not smoke. Lives alone. Physical examination: VITAL SIGNS: 98.5, 60, 16, 146 x 73, 98% room air GENERAL: BMI 25, reclining bed awake comfortable. EYES: Pupils equal. Conjunctiva ana l. HEENT: External appearance of nose and ears normal, oral cavity grossly normal. NECK: JVD not raised; masses not palpable. HEART: First and second heart sounds are normal; no edema. LUNGS: Respiratory rate normal; clear to auscultation. ABDOMEN: Soft, nontender, liver spleen not palpable, no masses palpable. PSYCH: Alert and oriented x3; mood and affect ana l. MUSCULOSKELETAL:No Clubbing/cyanosis;muscles-grossly intact. OA NEUROLOGICAL: Cranial nerves grossly intact; no facial asymmetry, power and sensation grossly intact. LYMPHATICS: No lymph nodes palpable in the axilla and neck INVESTIGATIONS, reviewed in the clinical context: White count 4.2 hemoglobin 13.4 platelets 236 potassium 3.9 BUN 14 creatinine 0.98 blood glucose 95 Troponin I 0.012 x 2 EKG tracing personally reviewed by me-normal sinus rhythm. Rate 55 Influenza type A, B, RSV, COVID-19, RSV cannot detected Chest x-ray film personally reviewed by me-lungs clear. Dextroscoliosis Chest CTA: Unremarkable Assessment plan: -For last 2 days patient having episodes of not feeling well perspiring nausea and has had daily 2 episodes of passing out. 1 episode of having pain in the entire chest wall. Patient is bradycardic. Stop beta-jo-ann. Has a history of hypoglycemia-will check Accu-Cheks 3 times daily. Rule out arrhythmia. Patient may need a stress test. -Primary osteoarthritis Tylenol as needed -Sinus bradycardia from Lopressor. Stop Lopressor Care was discussed with the patient. Questions answered. Cardiology consulted. Past Medical History Past Medical History: GERD/Reflux Additional Past Medical History / Comment(s): Hx mild palpitations. Osteopenia. c/o hx diarrhea, constipation, occ mild abd pain. History of Any Multi-Drug Resistant Organisms: None Reported Past Surgical History: Orthopedic Surgery, Tubal Ligation Additional Past Surgical History / Comment(s): LT KNEE SCOPE. COLONOSOCPY 2017. RT CATARACT REMOVED WITH LENS IMPLANTS Past Anesthesia/Blood Transfusion Reactions: Family History of Problems w/ Anesthesia, Postoperative Nausea & Vomiting (PONV) Additional Past Anesthesia/Blood Transfusion Reaction / Comment(s): Mother-PONV; no hx blood transfusion Past Psychological History: No Psychological Hx Reported Smoking Status: Never smoker Past Alcohol Use History: Occasional Past Drug Use History: None Reported - Past Family History Mother Family Medical History: CVA/TIA Father Family Medical History: Cancer, Chest Pain / Angina, CVA/TIA Additional Family Medical History / Comment(s): prostate CA. Sister(s) Family Medical History: Cancer Additional Family Medical History / Comment(s): breast CA. Medications and Allergies Home Medications Medication Instructions Recorded Confirmed Type Ascorbic Acid [Vitamin C] 1,000 mg PO DAILY 07/26/16 10/23/23 History Cholecalciferol [Vitamin D3 (125 125 mcg PO DAILY 09/08/21 10/23/23 History Mcg = 5000 Iu)] Aspirin 81 mg PO DAILY 11/26/21 10/23/23 Rx Metoprolol Tartrate [Lopressor] 12.5 mg PO DAILY 10/23/23 10/23/23 History Allergies Allergy/AdvReac Type Severity Reaction Status Date / Time codeine AdvReac Hallucinati Verified 10/23/23 18:08 ons latex AdvReac Itching Verified 10/23/23 18:08 Physical Exam Vitals: Vital Signs Temp Pulse Pulse Pulse Pulse Resp BP 10/23/23 18:22 98.5 F 60 71 63 16 10/23/23 17:59 97.4 F L 57 L 16 124/66 10/23/23 12:34 98.5 F 89 16 115/77 BP BP BP Pulse Ox 10/23/23 18:22 156/80 163/79 146/73 98 10/23/23 17:59 97 10/23/23 12:34 98 Intake and Output 10/23/23 10/23/23 10/23/23 06:59 14:59 22:59 Other: Weight 70.307 kg 70.307 kg Results CBC & Chem 7: 10/23/23 13:00 10/23/23 13:00 Labs: Abnormal Lab Results - Last 24 Hours (Table) 10/23/23 Range/Units 13:00 Chloride 108 H (98-107) mmol/L Total Protein 5.7 L (6.3-8.2) g/dL Thrombosis Risk Factor Assmnt - Choose All That Apply Each Risk Factor Represents 2 Points: Age 61-74 years Thrombosis Risk Factor Assessment Total Risk Factor Score: 2 Thrombosis Risk Factor Assessment Level: Low Risk
[2023-10-23] MEDS ORDERED: NALOXONE 0.4 MG/ML 1 ML VIAL IV PRN (20:22)
[2023-10-23] MEDS ORDERED: ACETAMINOPHEN TAB 325 MG TAB PO PRN (20:22)
[2023-10-23] MEDS ORDERED: ALPRAZolam 0.25 MG TAB PO PRN (20:22)
[2023-10-23] MEDS ORDERED: LACTULOSE 20 GM/30 ML CUP PO PRN (20:22)
[2023-10-23] MEDS ORDERED: CALCIUM CARBONATE 500 MG CHEWABLE PO PRN (20:22)
[2023-10-23] MEDS: ENOXAPARIN 40 MG/0.4 ML SYRINGE SQ SCH (20:52)
[2023-10-23 21:52] LABS: Glucose,Whole Blood 124 mg/dL (70-110)
[2023-10-24] MEDS: MELATONIN 3 MG TABLET PO PRN (01:47)
[2023-10-24 05:57] LABS: Glucose,Whole Blood 83 mg/dL (70-110)
[2023-10-24 08:47] VITALS: BP 142/76; PULSE 68; TEMP 97.8
[2023-10-24 08:57] LABS: Chol/HDL Ratio 2.47 Ratio; LDL Cholesterol,Calculated 85.8 mg/dL (0.0-131.0); VLDL Calculation 12.94 mg/dL (5.00-40.00)
[2023-10-24] MEDS ORDERED: ASPIRIN 81 MG PO SCH (09:00)
[2023-10-24] MEDS ORDERED: ASPIRIN 325 MG TAB PO SCH (09:00)
--- NOTE | 2023-10-24 09:20 | P.CRDCN ---
History of Present Illness History of present illness: HISTORY OF PRESENT ILLNESS: This is a 73-year-old female with a past medical history significant for palpitations. Patient follows in the office with Dr. Dillon. We have been asked to see the patient in consultation for chest pain. Patient examined at the bedside. Patient states on Sunday she began to have GI symptoms. She states that she had diarrhea and felt queasy so she took Pepto-Bismol. She states her symptoms initially got better but then returned so she went to bed. She states she got up to use the bathroom and after using the bathroom when she started walking back to bed she states everything became black and she passed out. She states she had no warning sign she was going to pass out. She states since then she has been having some chest discomfort. She states that her entire upper body feels like it is aching. She states the pain was in the middle of her c hest and also went into her neck arms, shoulder, and back. She denied feeling short of breath. She does report feeling clammy. At the time of examination, she denies any chest pain or pressure. DIAGNOSTICS: - EKG reveals sinus bradycardia with no signs of acute ischemia - Chest xray negative for acute process - Chest CTA: Negative for PE - Laboratory data: WBC 4.2. Hemoglobin 13.4. Platelet count 266. Sodium 137. Potassium 3.9. BUN 14. Creatinine 0.98. Lactic acid 0.8. Troponin negative x 3 - Current home cardiac medications include metoprolol 12.5 mg daily. - Most recent echocardiogram obtained in November 2021 reveals ejection fraction greater than 55%, mild MR, mild TR. REVIEW OF SYSTEMS: At the time of my exam: CONSTITUTIONAL: Denies fever or chills. HEENT: Denies blurred vision, vision changes, or eye pain. Denies hemoptysis CARDIOVASCULAR: Denies chest pain. Denies orthopnea. Denies PND. Denies palpitations RESPIRATORY: Denies shortness of breath. GASTROINTESTINAL: Denies abdominal pain. Denies nausea or vomiting. HEMATOLOGIC: Denies bleeding disorders. GENITOURINARY: Denies any blood in urine. SKIN: Denies pruitis. Denies rash. PHYSICAL EXAM: VITAL SIGNS: Reviewed. GENERAL: Well-developed in no acute distress. HEENT: Head is normocephalic. Pupils are equal, round. Sclerae anicteric. Mucous membranes of the mouth are moist. Neck supple. No JVD or thyromegaly LUNGS: Respirations even and unlabored. Lungs essentially clear to auscultation bilaterally. HEART: Regular rate and rhythm. S1 and S2 heard. ABDOMEN: Soft. Nondistended. Nontender. EXTREMITIES: Normal range of motion. No clubbing or cyanosis. Peripheral pulses intact. No lower extremity edema NEUROLOGIC: Awake and alert. Oriented x 3. ASSESSMENT: Syncope Chest pain, troponin negative x 3 Diarrhea with right upper quadrant abdominal pain, rule out gallbladder etiology History of palpitations PLAN: An acute coronary event has been ruled out Obtain 2D echo to assess cardiac structure and function Obtain ultrasound of the gallbladder If gallbladder ultrasound is unremarkable, patient will undergo stress testing today Further recommendations pending patient course Nurse practitioner note has been reviewed by physician. Signing provider agrees with the documented findings, assessment, and plan of care documented by OPERATIONS SECTION MANAGER as a scribe. Past Medical History Past Medical History: GERD/Reflux Additional Past Medical History / Comment(s): Hx mild palpitations. Osteopenia. c/o hx diarrhea, constipation, occ mild abd pain. History of Any Multi-Drug Resistant Organisms: None Reported Past Surgical History: Orthopedic Surgery, Tubal Ligation Additional Past Surgical History / Comment(s): LT KNEE SCOPE. COLONOSOCPY 2017. RT CATARACT REMOVED WITH LENS IMPLANTS Past Anesthesia/Blood Transfusion Reactions: Family History of Problems w/ Anesthesia, Postoperative Nausea & Vomiting (PONV) Additional Past Anesthesia/Blood Transfusion Reaction / Comment(s): Mother-PONV; no hx blood transfusion Past Psychological History: No Psychological Hx Reported Smoking Status: Never smoker Past Alcohol Use History: Occasional Past Drug Use History: None Reported - Past Family History Mother Family Medical History: CVA/TIA Father Family Medical History: Cancer, Chest Pain / Angina, CVA/TIA Additional Family Medical History / Comment(s): prostate CA. Sister(s) Family Medical History: Cancer Additional Family Medical History / Comment(s): breast CA. Medications and Allergies Home Medications Medication Instructions Recorded Confirmed Type Ascorbic Acid [Vitamin C] 1,000 mg PO DAILY 07/26/16 10/23/23 History Cholecalciferol [Vitamin D3 (125 125 mcg PO DAILY 09/08/21 10/23/23 History Mcg = 5000 Iu)] Aspirin 81 mg PO DAILY 11/26/21 10/23/23 Rx Metoprolol Tartrate [Lopressor] 12.5 mg PO DAILY 10/23/23 10/23/23 History Allergies Allergy/AdvReac Type Severity Reaction Status Date / Time codeine AdvReac Hallucinati Verified 10/23/23 18:08 ons latex AdvReac Itching Verified 10/23/23 18:08 Physical Exam Vitals: Vital Signs Temp Pulse Pulse Pulse Pulse Pulse Resp 10/24/23 01:48 98.1 F 61 16 10/23/23 18:22 98.5 F 60 71 63 16 10/23/23 17:59 97.4 F L 57 L 16 10/23/23 12:34 98.5 F 89 16 BP BP BP BP Pulse Ox 10/24/23 01:48 133/67 98 10/23/23 18:22 156/80 163/79 146/73 98 10/23/23 17:59 124/66 97 10/23/23 12:34 115/77 98 Intake and Output 10/23/23 10/24/23 10/24/23 22:59 06:59 14:59 Other: # Voids 1 Weight 70.307 kg Results 10/23/23 13:00 10/23/23 13:00 Cardiac Enzymes 10/23/23 10/23/23 10/23/23 Range/Units 13:00 13:00 16:40 AST 34 (14-36) U/L Troponin I <0.012 <0.012 (0.000-0.034) ng/mL 10/23/23 Range/Units 21:31 AST (14-36) U/L Troponin I <0.012 (0.000-0.034) ng/mL Coagulation 10/23/23 Range/Units 13:00 PT 10.6 (10.0-12.5) sec APTT 22.2 (22.0-30.0) sec CBC 10/23/23 Range/Units 13:00 WBC 4.2 (3.8-10.6) k/uL RBC 4.18 (3.80-5.40) m/uL Hgb 13.4 (11.4-16.0) gm/dL Hct 39.2 (34.0-46.0) % Plt Count 266 (150-450) k/uL Comprehensive Metabolic Panel 10/23/23 Range/Units 13:00 Sodium 137 (137-145) mmol/L Potassium 3.9 (3.5-5.1) mmol/L Chloride 108 H (98-107) mmol/L Carbon Dioxide 23 (22-30) mmol/L BUN 14 (7-17) mg/dL Creatinine 0.98 (0.52-1.04) mg/dL Glucose 95 (74-99) mg/dL Calcium 9.0 (8.4-10.2) mg/dL AST 34 (14-36) U/L ALT 16 (4-34) U/L Alkaline Phosphatase 75 (38-126) U/L Total Protein 5.7 L (6.3-8.2) g/dL Albumin 3.5 (3.5-5.0) g/dL Current Medications Generic Name Dose Route Start Last Admin Trade Name Freq PRN Reason Stop Dose Admin Acetaminophen 650 mg 10/23/23 20:22 Acetaminophen Tab 325 Mg Tab PO Q6HR PRN Mild Pain or Fever > 100.5 Alprazolam 0.25 mg 10/23/23 20:22 Alprazolam 0.25 Mg Tab PO Q6HR PRN Anxiety Aspirin 81 mg 10/24/23 09:00 Aspirin 81 Mg PO DAILY KYLIE Calcium Carbonate/Glycine 1,000 mg 10/23/23 20:22 Calcium Carbonate 500 Mg Chewable PO Q4HR PRN Dyspepsia Enoxaparin Sodium 40 mg 10/23/23 20:30 10/23/23 20:52 Enoxaparin 40 Mg/0.4 Ml Syringe SQ 40 mg DAILY KYLIE Administration Lactulose 20 gm 10/23/23 20:22 Lactulose 20 Gm/30 Ml Cup PO DAILY PRN Constipation Melatonin 3 mg 10/23/23 20:22 10/24/23 01:47 Melatonin 3 Mg Tablet PO 3 mg HS PRN Administration Insomnia Naloxone HCl 0.2 mg 10/23/23 20:22 Naloxone 0.4 Mg/Ml 1 Ml Vial IV Q2M PRN Opioid Reversal Nitroglycerin 0.4 mg 10/23/23 15:53 Nitroglycerin Sl Tabs 0.4 Mg Tab SUBLINGUAL Q5M PRN Chest Pain Intake and Output 10/23/23 10/24/23 10/24/23 22:59 06:59 14:59 Other: # Voids 1 Weight 70.307 kg 10/23/23 13:00 10/23/23 13:00
[2023-10-24] MEDS: ASPIRIN 81 MG PO SCH (09:44)
--- NOTE | 2023-10-24 10:30 | CA ---
Transthoracic Echo Report Name: Leisa Cordoba Age: 73 Gender: F : 1950 Exam Date: 10/24/2023 08:02 Exam Location: [place] [facility] Ht (in): 66 Wt (lb): 155 Ordering Physician: Janet Joseph Attending/Referring Phys: [id number], Opal [employer] Photographer Yanira Pruett RCS Procedure CPT: Indications: LV function Cardiac Hx: Technical Quality: Fair Contrast 1: Total Dose (mL): Contrast 2: Total Dose (mL): MEASUREMENTS (Male / Female) Normal Values 2D ECHO LV Diastolic Diameter PLAX 4.6 cm 4.2 - 5.9 / 3.9 - 5.3 cm LV Systolic Diameter PLAX 3.2 cm IVS Diastolic Thickness 1.0 cm 0.6 - 1.0 / 0.6 - 0.9 cm LVPW Diastolic Thickness 0.9 cm 0.6 - 1.0 / 0.6 - 0.9 cm LV Relative Wall Thickness 0.4 RV Internal Dim ED PLAX 2.6 cm LVOT Diameter 2.1 cm LA Volume 17.8 cm??? 18 - 58 / 22 - 52 cm??? LA Volume Index 9.8 cm???/m??? 16 - 28 cm???/m??? Ascending Aorta Diameter 3.5 cm DOPPLER AV Peak Velocity 96.2 cm/s AV Peak Gradient 3.7 mmHg AV Mean Velocity 63.2 cm/s AV Mean Gradient 1.8 mmHg AV Velocity Time Integral 22.6 cm LVOT Peak Velocity 91.8 cm/s LVOT Peak Gradient 3.4 mmHg LVOT Velocity Time Integral 21.4 cm LVOT Stroke Volume 71.7 cm??? LVOT Stroke Volume Index 40.0 ml/m??? LVOT Cardiac Index 2600.4 cm???/min???m??? AV Area Cont Eq vti 3.2 cm??? AV Area Cont Eq pk 3.2 cm??? Mitral E Point Velocity 47.6 cm/s Mitral A Point Velocity 39.9 cm/s Mitral E to A Ratio 1.2 MV Deceleration Time 205.6 ms MV E' Velocity 6.6 cm/s Mitral E to MV E' Ratio 7.2 TR Peak Velocity 240.4 cm/s TR Peak Gradient 23.1 mmHg Right Ventricular Systolic Press 28.1 mmHg PV Peak Velocity 82.7 cm/s PV Peak Gradient 2.7 mmHg FINDINGS Left Ventricle Left ventricular ejection fraction is estimated at 60-65 %. Left ventricular wall thickness normal. Left ventricular cavity size normal. No obvious regional wall motion abnormalities. Right Ventricle Normal right ventricular size and function. Right ventricular systolic pressure within normal limits. Right Atrium Normal right atrial size. Left Atrium Normal left atrial size. Mitral Valve Structurally normal mitral valve. No evidence for mitral valve prolapse. No mitral stenosis. Trace mitral regurgitation. Aortic Valve Trileaflet aortic valve. No aortic stenosis. No aortic regurgitation. Tricuspid Valve Structurally normal tricuspid valve. No tricuspid stenosis. Trace tricuspid regurgitation. Pulmonic Valve Structurally normal pulmonic valve. No pulmonic stenosis. Trace pulmonic regurgitation. Pericardium No pericardial effusion. Aorta Mildly dilated aortic annulus. Ascending aorta normal. CONCLUSIONS Normal LV systolic function Previewed by: Dr. Tariq Dalal MD (Electronically Signed) Final Date: 24 October 2023 10:29
--- NOTE | 2023-10-24 10:50 | US ---
EXAMINATION TYPE: US gallbladder DATE OF EXAM: 10/24/2023 COMPARISON: NONE CLINICAL INDICATION: Female, 73 years old with history of right upper quadrant pain; TECHNIQUE: Multiple sonographic images of the right upper quadrant are obtained. FINDINGS: EXAM MEASUREMENTS: Liver Length: 13.2 cm Gallbladder Wall: 0.12 cm CBD: 0.44 cm Right Kidney: 7.4 x 3.7 x 3.5 cm Pancreas: Tail obscured by overlying bowel gas Liver: wnl Gallbladder: wnl Evidence for sonographic Howard's sign: No CBD: wnl Right Kidney: Limited evaluation of inferior pole due to overlying bowel gas. No hydronephrosis. IMPRESSION: No gallstones or biliary ductal dilatation. Limited visualization of the pancreatic tail and lower po le of the right kidney due to bowel gas.
[2023-10-24] MEDS ORDERED: CAFFEINE CITRATE 60 MG/3 ML VIAL IV PRN (10:56)
[2023-10-24] MEDS ORDERED: REGADENOSON 0.4 MG/5 ML SYRINGE IV PRN (10:56)
[2023-10-24] MEDS ORDERED: AMINOPHYLLINE 500 MG/20 ML VIAL IV PRN (10:56)
[2023-10-24 12:21] LABS: Glucose,Whole Blood 88 mg/dL (70-110)
[2023-10-24] MEDS: METOPROLOL TARTRATE 12.5 MG TAB PO SCH (12:48)
--- NOTE | 2023-10-24 12:58 | P.DS ---
Providers Date of admission: 10/23/23 15:56 Expected date of discharge: 10/24/23 Attending physician: Andrzej Dumont Consults: 10/23/23 15:53 Consult Physician Urgent Consulting Provider: [facility] Consult Reason/Comments: Chest pain, syncope Do you want consulting provider notified?: Yes [facility] Course: Discharge diagnoses; Chest pain Syncopal episode Fall Bradycardia Primary osteoarthritis Diarrhea Hospital course; This is a very pleasant 73-year-old patient is follows Dr. Torrez. Rather good health. Sunday evening she just felt nauseated. It was just feeling off. Then she went to the bathroom and then she passed out falling forward. When she got up she felt achiness from the throat and the through the upper body. Also was perspiring. She went back to sleep. Next day that is Sunday all day she just did not feel right felt nauseated. Yesterday she made an appointment to see her engineer automated equipment Dr. ROSY Dillon. Today when she was getting ready to come in she started again perspiring started feeling weak just not feeling right., And asked a neighbor to bring her to the hospital. In the past she has been told a long time ago that she may have hypoglycemia. 10/23. Patient seen and examined. Dr. Douglass took over care from Dr. Dumont Ultrasound abdomen done showed no gallstones or biliary duct dilatation 2D echo done showed normal LV systolic function, no regional wall motion abnormalities. Cardiology recommended doing stress test but patient at this time is refusing any stress testing, wants to follow-up outpatient with cardiology. Cardiology cleared the patient for discharge PHYSICAL EXAMINATION: GENERAL: The patient is alert and oriented x3, not in any acute distress. Well developed, well nourished. HEENT: Pupils are round and equally reacting to light. EOMI. No scleral icterus. No conjunctival pallor. Normocephalic, atraumatic. No pharyngeal erythema. No thyromegaly. CARDIOVASCULAR: S1 and S2 present. No murmurs, rubs, or gallops. PULMONARY: Chest is clear to auscultation, no wheezing or crackles. ABDOMEN: Soft, nontender, nondistended, normoactive bowel sounds. No palpable organomegaly. MUSCULOSKELETAL: No joint swelling or deformity. EXTREMITIES: No cyanosis, clubbing, or pedal edema. NEUROLOGICAL: Gross neurological examination did not reveal any focal deficits. SKIN: No rashes. Dictation was produced using [employer] dictation software. please excuse any grammatical, word or spelling errors. Patient Condition at Discharge: Good Plan - Discharge Summary Discharge Rx Participant: No New Discharge Prescriptions: Continue Ascorbic Acid [Vitamin C] 1,000 mg PO DAILY Aspirin 81 mg PO DAILY Cholecalciferol [Vitamin D3 (125 Mcg = 5000 Iu)] 125 mcg PO DAILY Metoprolol Tartrate [Lopressor] 12.5 mg PO DAILY Discharge Medication List Ascorbic Acid [Vitamin C] 1,000 mg PO DAILY 07/26/16 [History] Cholecalciferol [Vitamin D3 (125 Mcg = 5000 Iu)] 125 mcg PO DAILY 09/08/21 [History] Aspirin 81 mg PO DAILY 11/26/21 [Rx] Metoprolol Tartrate [Lopressor] 12.5 mg PO DAILY 10/23/23 [History] Follow up Appointment(s)/Referral(s): Carlos Torrez DO [Primary Care Provider] - 1-2 days Rc Arteaga MD [STAFF PHYSICIAN] - 1 Week Discharge Disposition: HOME SELF-CARE
== END 2023-10-24 13:40 | disposition home or self-care (01) ==
LOC: EC 12:32 → 6NMEDSUR 15:56
PROVIDERS: ADMIT Hospitalist; ATTEND Hospitalist
DX: R55 Syncope and collapse (principal); R07.9 Chest pain, unspecified; R11.0 Nausea; R00.1 Bradycardia, unspecified; R19.7 Diarrhea, unspecified; R10.11 Right upper quadrant pain; M19.91 Primary osteoarthritis, unspecified site; K21.9 Gastro-esophageal reflux disease without esophagitis; S09.90XA Unspecified injury of head, initial encounter; W19.XXXA Unspecified fall, initial encounter; Z79.899 Other long term (current) drug therapy; Z79.82 Long term (current) use of aspirin; Z88.5 Allergy status to narcotic agent; Z91.040 Latex allergy status
CPT/HCPCS: 96372 ×2; 96360; 96361; 99285; 36415; 93005; 93306; 80061; 80053; 83605; 83735; 84484; 85025; 85610; 85730; 81003; 87636; 71046; 76705; 71275; G0378 ×2; J1650 ×2; J2785; Q9967

== ENCOUNTER → 2023-12-03 | Outpatient (CLI) | payer MEDICARE ==
--- NOTE | 2023-12-04 19:35 | MM ---
Reason for Exam: Screening (asymptomatic). Last mammogram was performed 2 year(s) and 4 month(s) ago. Patient History: Menarche at age 17. First Full-Term at age 24. Postmenopausal. Estrogen for 5 years, 1 month. Sister had breast cancer, age 59. Risk Values: Carmen 5 year model risk: 3.1%. NCI Lifetime model risk: 7.9%. Prior Study Comparison: 09/17/2017 Bilateral Screening Mammogram, [facility]. 08/03/2020 Bilateral Screening Mammogram, [facility]. 08/04/2021 Bilateral Screening Mammogram, [facility]. Tissue Density: The breasts are heterogeneously dense, which may obscure small masses. Findings: Analyzed By CAD. There is no suspicious group of microcalcifications or new suspicious mass in either breast. Overall Assessment: Negative, BI-RAD 1 Management: Screening Mammogram of both breasts in 1 year. See note below in regards to the patient's increased 5 year Carmen score. Patient should continue monthly self-breast exams. A clinical breast exam by your physician is recommended on an annual basis. This exam should not preclude additional follow-up of suspicious palpable abnormalities. Note on Carmen scores and lifetime risk: 1. A Carmen score greater than 3% is considered moderate risk. If this is the case, consider specialist referral to assess eligibility for a risk reducing agent. 2. If overall lifetime risk for the development of breast cancer is 20% or higher, the patient may qualify for future screening with alternating mammogram and breast MRI. Electronically signed and approved by: Chava Alan M.D. Radiologist
== END | disposition home or self-care (01) ==
LOC: RADMAMWWP 11:17
PROVIDERS: ATTEND Family Medicine
DX: Z12.31 Encounter for screening mammogram for malignant neoplasm of breast (principal); Z78.0 Asymptomatic menopausal state; Z80.3 Family history of malignant neoplasm of breast
CPT/HCPCS: 77063; 77067

== ENCOUNTER 2024-01-15 08:35 | Day surgery (SDC) | payer MEDICARE ==
[2024-01-11 12:26] VITALS: BMI 25.0
[~2024-01-15 08:35] MED LIST changes: +ALPRAZolam 0.25 MG TAB PO PRN; +ALPRAZolam 0.5 MG TAB PO PRN; +ASPIRIN 325 MG TAB PO STA; -LACTATED RINGERS 1,000 ML IV SCH; -LIDOCAINE 1% 20 ML VIAL (10MG/ML) FOR IV START INTRADERMA PRN; +NITROGLYCERIN SL TABS 0.4 MG TAB SUBLINGUAL PRN; +SODIUM CHLORIDE 0.9% 1,000 ML in EMPTY BAG 1 BAG IV SCH
[2024-01-15] MEDS: SODIUM CHLORIDE 0.9% 1,000 ML IV ONE (08:53)
[2024-01-15 09:13] VITALS: RESP 16; TEMP 97
[2024-01-15] MEDS ORDERED: LIDOCAINE 1% INJ 10MG/ML (20 ML MDV) ONE (11:45)
[2024-01-15] MEDS ORDERED: VERAPAMIL 2.5 MG/ML 2 ML AMP ONE (11:45)
[2024-01-15] MEDS ORDERED: HEPARIN SODIUM 1,000 UN/ML (10ML VL) ONE (11:53)
[2024-01-15] MEDS: VERAPAMIL SYRINGE (5 MG/10 ML) INTRAARTER ONE ×2 (11:57→12:00)
[2024-01-15] MEDS: LIDOCAINE 1% INJ 10MG/ML (20 ML MDV) SQ ONE (11:57)
[2024-01-15] MEDS: MIDAZOLAM 2 MG/2 ML VIAL IVP ONE (11:58)
[2024-01-15] MEDS ORDERED: fentaNYL (PF) 50 MCG/ML 2 ML AMP ONE (12:00)
[2024-01-15] MEDS: fentaNYL (PF) 50 MCG/1 ML VIAL IVP ONE (12:01)
[2024-01-15] MEDS: HEPARIN SODIUM 1,000 UN/ML (10ML VL) IVP ONE (12:06)
[2024-01-15] MEDS: IOPAMIDOL-370 100ML BTL INJ ONE (12:14)
--- NOTE | 2024-01-15 12:28 | P.CARDCATH ---
Date of Procedure: 01/15/24 Description of Procedure: History: This is a 73-year-old lady with a history of atypical chest pain vasovagal episode had a recent event monitor which was unremarkable. She had a stress echo because of persistent chest pain walked for 4-1/2 minutes with a heart rate of 151 bpm with a focal hypokinetic area in the anterior septal area therefore she was advised to cardiac cath after due discussion regarding risks benefits and options. Patient was referred for cardiac catheterization to evaluate for CAD. Procedure: Left heart catheterization and coronary angiography Performed by: Dr. Renita Dillon Moderate conscious sedation time: 18 minutes. Patient was administered Versed and fentanyl. Oxygen saturation hemodynamics and EKG were monitored closely Procedure Details: The risks, benefits, complications, treatment options, and expected outcomes were discussed with the patient. The patient and/or family concurred with the proposed plan, giving informed consent. Patient was brought to the woods laborer after IV hydration was begun and oral premedication was given. Patient was further sedated with midazolam. Patient was prepped and draped in the usual manner. Under strict aseptic precautions and local anesthesia a 6 Kazakh introducer was placed in the right radial artery. Using a JL 3/5 and a JR 4/0 catheters I performed coronary angiography and the same JR catheter was used to check LV pressures and LV gram was not performed. After the procedure was completed the sheaths and catheters were all removed. Hemostasis was achieved with TR band. Saturation in the fingers of the right hand was about 97%. Moderate conscious sedation time was 18 minutes. Patient's oxygen saturation hemodynamics and EKG were monitored closely. Findings: Hemodynamics: The left ventricle end-diastolic pressure was 8 to 10 mmHg without any gradient across aortic valve Left Main: Short patent vessel no significant disease bifurcates into LAD and circumflex LAD: Good caliber vessel extends along the anterior wall gives off septal and diagonal branches and wraps towards the apex. Has no significant disease in the entire LAD system. It gives off septal and diagonal branches and runs all the way to the apex and comes over the apex to supply the inferoapical portion. No significant disease in the LAD system CIRC: Nondominant fair caliber fair distribution no significant disease minor irregularities RCA: Dominant vessel no significant disease bifurcates into PDA and PLV both of which have no significant disease other than minor irregularities LV: Not performed Closure Device: TR band Complications: None Estimated Blood Loss: Minimal Impression: This patient has a right dominant system normal filling pressures and no gradient and no significant obstructive CAD Pre Procedure Diagnosis: CAD with abnormal stress test Final Post Procedure Diagnosis: Nonobstructive CAD Recommendation: Continued medical therapy with risk factor modification. Findings were discussed with the patient as well as her family including her daughter Angela. We will continue medical therapy with risk factor modification no intervention. Stress test was probably a false positive. Complications: None; patient tolerated the procedure well. Disposition: [facility]- hemodynamically stable. Condition: Stable Discharge Disposition: Discharge patient home later on today.
[2024-01-15] MEDS: ACETAMINOPHEN TAB 500 MG TAB PO STA (13:19)
[2024-01-15 15:21] VITALS: PULSE 52
[2024-01-15 15:57] VITALS: BP 133/76
== END 2024-01-15 17:34 | disposition home or self-care (01) ==
LOC: CATHCVL 08:35
PROVIDERS: ATTEND Internal Medicine Interventional Cardiology
DX: I25.10 Atherosclerotic heart disease of native coronary artery without angina pectoris (principal); I47.10 Supraventricular tachycardia, unspecified; E78.5 Hyperlipidemia, unspecified; Z79.82 Long term (current) use of aspirin; Z79.899 Other long term (current) drug therapy
CPT/HCPCS: 93458; C1769; C1894; J2250; J2001; J1644; Q9967; J3010